=== PATIENT | male | born 1975 | race Caucasian/White ===

== ENCOUNTER 2024-01-20 16:29 | Emergency (ER) | payer OTHER, MEDICARE, SELFPAY ==
[2024-01-20] VITALS (7 sets, daily range): BP systolic 128–156; BP diastolic 80–94; PULSE 52–102; RESP 12–18; TEMP 36.6; O2SAT 92–99; BMI 25.4
--- NOTE | 2024-01-20 16:43 | CTR_ITS ---
PROCEDURE INFORMATION: Exam: CT Abdomen And Pelvis With Contrast Exam date and time: 01/20/2024 5:21 PM Age: 48 years old Clinical indication: Abdominal pain; Prior surgery; Surgery date: 6+ months; Surgery type: Gb; Additional info: Abd pain TECHNIQUE: Imaging protocol: Computed tomography of the abdomen and pelvis with contrast. Radiation optimization: All CT scans at this facility use at least one of these dose optimization techniques: automated exposure control; mA and/or kV adjustment per patient size (includes targeted exams where dose is matched to clinical indication); or iterative reconstruction. Contrast material: OMNI 350; Contrast volume: 100 ml; Contrast route: INTRAVENOUS (IV); COMPARISON: No relevant prior studies available. RADIATION DOSE METRICS: Total DLP (mGy-cm): 616 FINDINGS: Lungs: Lung bases are clear. Diaphragm: There is a small sliding-type hiatal hernia. Liver: The liver is normal. Gallbladder and biliary ducts: The gallbladder is absent. There is ectasia of the common bile duct and central intrahepatic ducts. Pancreas: There are extensive calcifications in the pancreatic parenchyma consistent with chronic pancreatitis. No sign of acute pancreatitis. Spleen: The spleen is mildly enlarged. Adrenal glands: There is hypertrophy of the left adrenal gland. Kidneys and ureters: There are innumerable bilateral simple and complicated renal cysts measuring up to 3 cm on the right and 3.5 cm on the left. Both kidneys are mildly enlarged. No definite enhancing renal lesion is seen, although high density cysts cannot be confidently differentiated from enhancing solid neoplasm. There is no hydronephrosis or ureteral dilation. 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 Subtle asymmetric urothelial enhancement in the right ureters. No stones. No ureteral stones. Left ureter is normal. Stomach and bowel: The stomach is decompressed, preventing meaningful evaluation of wall thickness. The small bowel is nondilated. The cecum and ascending colon are decompressed, limiting assessment of wall thickness. There is relatively greater wall thickness and enhancement just above the cecum than in the remainder of the colon. There is no definite pericolonic edema. The colon is unremarkable more distally. Appendix: The appendix is normal. Intraperitoneal space: There is no free air or significant intraperitoneal free fluid. Vasculature: There is mild aortic atherosclerotic disease. The portal, splenic and superior mesenteric veins are patent. Lymph nodes: There is no lymphadenopathy in the retroperitoneum, mesentery, pelvis or inguinal regions. Urinary bladder: There is mild diffuse bladder wall thickening suggesting muscular hypertrophy. Reproductive: The prostate and seminal vesicles are unremarkable. Bones/joints: intact posterolateral and interbody fusion at L5-S1. There is mild degenerative disease in the lumbar spine. There is a serpiginous focal sclerosis in the right femoral head suggesting avascular necrosis. There is no subchondral collapse. There is moderate degenerative disease of both hips. The bony pelvis is intact. Soft tissues: There is a small fat containing umbilical hernia. There is a small fat containing right inguinal hernia. CT/CT abdomen pelvis w con* [id number] IMPRESSION: 1. Asymmetric ureteral urothelial enhancement involving duplicated right ureters suggesting ascending urinary tract infection. No sign of obstruction. No stones. 2. Nondistended colon with questionable abnormal wall thickening and enhancement in the ascending colon. This finding may be nonpathologic. Colitis and neoplasm are not excluded. Consider colonoscopy. 3. Focal sclerosis in right femoral head suggesting avascular necrosis. No subchondral collapse. 4. Bilateral polycystic kidneys with numerous simple cysts and additional indeterminate lesions bilaterally which are likely hemorrhagic cyst but cannot be confidently differentiated from enhancing solid neoplasms in the absence of additional phases of contrast. Recommend nonemergent CT or MRI without and with IV contrast. 5. Incidental findings above. COMMENTS: Consistent with the [place] [employer]'s Incidental Findings Committee white paper (J Am Christian Radiol 2018): Any incidental renal lesion less than 1 cm or classified as too small to characterize, or any incidental cystic renal lesion characterized as simple-appearing, is likely benign. No follow-up imaging is recommended for these lesions per consensus recommendations based on imaging criteria.
--- NOTE | 2024-01-20 16:50 | W.ED.ABDPA2 ---
HPI - Abdominal Pain General: Chief Complaint: Abdominal Pain Stated Complaint: lower abd pain Time Seen by Provider: 01/20/24 16:33 Source: patient and EMS Mode of arrival: EMS Limitations: no limitations History of Present Illness: 48-year-old male states he has a history of chronic pancreatitis states he started having abdominal pain along with vomiting diarrhea states he feels very dehydrated. He was given Zofran Dilaudid route states he is improving no longer has any pain but states he is having generalized weakness he denies any fevers denies any worsening Associated Symptoms: Reports diarrhea, nausea and vomiting; Denies chills, dysuria and fever(s) Related Data Previous Rx's Medication Instructions Recorded hydrocodone 5 mg-acetaminophen 325 1 tab PO Q6H PRN pain #14 tabs 01/20/24 mg tablet ondansetron 4 mg disintegrating 4 mg PO Q6H PRN nausea and 01/20/24 tablet vomiting #14 tabs Allergies Allergy/AdvReac Type Severity Reaction Status Date / Time No Known Allergies Allergy Verified 01/20/24 16:55 Review of Systems Const: Denies: fever(s), chills, body aches or change in appetite ENMT: Denies: throat pain or dental pain Card: Denies: chest pain Resp: Denies: dyspnea GI: Reports: abdominal pain, nausea, vomiting and diarrhea : Denies: dysuria Musc: Denies: neck pain or back pain Skin/Breast: Denies: rash Neuro: Denies: headache(s) Physical Exam Const: COMMON NORMALS: no acute distress, patient oriented x3 and healthy appearing HENMT: COMMON NORMALS: normocephalic and atraumatic HEAD & SCALP: normocephalic and atraumatic Eye: COMMON NORMALS: conjunctivae normal CONJUNCTIVA: Yes conjunctivae normal Neck/C-Spine: COMMON NORMALS: full ROM and supple Chest: COMMONS NORMALS: normal inspection of the chest and normal palpation of entire chest wall Resp: COMMON NORMALS: normal respiratory effort, No retractions, No use of accessory muscles and clear to auscultation bilaterally AUSCULTATION: clear to auscultation bilaterally Cardio: COMMON NORMALS: regular rate, regular rhythm and No murmurs present (Cardio) RATE: regular rate RHYTHM: regular rhythm GI: COMMON NORMALS: Normal to inspection, nondistended, normoactive bowel sounds present, Soft to palpation, non-tender and no masses PALPATION: Yes Soft to palpation Extremity: COMMON NORMALS: normal to inspection and full ROM Neuro: COMMON NORMALS: patient oriented x3, moves all extremities and no focal motor deficits Psych: COMMON NORMALS: mental status grossly normal, Normal thought process present and cooperative THOUGHT PROCESS: Normal thought process present Skin: COMMON NORMALS: no rashes or lesions noted and no wounds GENERAL SKIN EXAM: no rashes or lesions noted Course Vital Signs: Vital signs: Vital Signs Temperature 97.8 F 01/20/24 16:47 Pulse Rate 58 L 01/20/24 18:30 Respiratory Rate 16 01/20/24 18:30 Blood Pressure 128/82 01/20/24 18:30 Pulse Oximetry 99 01/20/24 18:30 Oxygen Delivery Me thod Room Air 01/20/24 18:30 MDM - Abdominal Pain Medical Decision Making Patient presents here with vomiting along with abdominal pain CT scan showed no real acute findings his blood work is normal urinalysis normal no signs of UTI he feels much improved here we will prescribe pain meds nausea medicine we will get him follow-up with surgery return if worsening he understands agrees to plan Medical Records I reviewed the patient's medical records. Lab Data I reviewed the patient's lab results. 01/20/24 17:42 01/20/24 17:42 Labs/Radiology: Radiology Impressions Abdomen/Pelvis CT 01/20/24 16:43 IMPRESSION: 1. Asymmetric ureteral urothelial enhancement involving duplicated right ureters suggesting ascending urinary tract infection. No sign of obstruction. No stones. 2. Nondistended colon with questionable abnormal wall thickening and enhancement in the ascending colon. This finding may be nonpathologic. Colitis and neoplasm are not excluded. Consider colonoscopy. 3. Focal sclerosis in right femoral head suggesting avascular necrosis. No subchondral collapse. 4. Bilateral polycystic kidneys with numerous simple cysts and additional indeterminate lesions bilaterally which are likely hemorrhagic cyst but cannot be confidently differentiated from enhancing solid neoplasms in the absence of additional phases of contrast. Recommend nonemergent CT or MRI without and with IV contrast. 5. Incidental findings above. COMMENTS: Consistent with the [employer]'s Incidental Findings Committee white paper (J Am Christian Radiol 2018): Any incidental renal lesion less than 1 cm or classified as too small to characterize, or any incidental cystic renal lesion characterized as simple-appearing, is likely benign. No follow-up imaging is recommended for these lesions per consensus recommendations based on imaging criteria. Laboratory Results WBC 9.34 10^3/uL (3.29-11.43) 01/20/24 17:42 RBC 4.35 10^6/uL (3.85-5.65) 01/20/24 17:42 Hgb 14.20 g/dL (11.27-16.99) 01/20/24 17:42 Hct 41.0 % (37-53) 01/20/24 17:42 MCV 94.3 fl (82-101) 01/20/24 17:42 MCH 32.6 pg (27-33) 01/20/24 17:42 MCHC 34.6 g/dL (30-55) 01/20/24 17:42 RDW 12.0 % (12.1-15.1) L 01/20/24 17:42 Plt Count 160 10^3/cmm (157-399) 01/20/24 17:42 MPV 10.2 fL (7.4-10.4) 01/20/24 17:42 Neut % (Auto) 88.8 % 01/20/24 17:42 Lymph % (Auto) 6.1 % 01/20/24 17:42 Boundary % (Auto) 4.4 % 01/20/24 17:42 Eos % (Auto) 0.1 % 01/20/24 17:42 Baso % (Auto) 0.3 % 01/20/24 17:42 Neut # (Auto) 8.29 10^3/uL (1.8-7.7) H 01/20/24 17:42 Lymph # (Auto) 0.6 10^3/uL (0.8-4.8) L 01/20/24 17:42 Boundary # (Auto) 0.4 10^3/uL (0.2-0.9) 01/20/24 17:42 Eos # (Auto) 0.0 10^3/uL (0.0-0.8) 01/20/24 17:42 Baso # (Auto) 0.0 10^3/uL (0.0-0.1) 01/20/24 17:42 Nucleated RBC % (auto) 0 % 01/20/24 17:42 Nucleated RBCs # 0.0 /100WBC 01/20/24 17:42 Sodium 140 mmol/L (136-145) 01/20/24 17:42 Potassium 4.5 mmol/L (3.5-5.1) 01/20/24 17:42 Chloride 102 mmol/L (98-107) 01/20/24 17:42 Carbon Dioxide 24 mmol/L (22-29) 01/20/24 17:42 Anion Gap 18.5 (5-19) 01/20/24 17:42 BUN 26 mg/dL (6-20) H 01/20/24 17:42 Creatinine 1.8 mg/dL (0.7-1.2) H 01/20/24 17:42 GFR Calculation 40.8 mL/min (90-130) L 01/20/24 17:42 Glucose 222 mg/dL (65-115) H 01/20/24 17:42 Calculated Osmolality 302 mOsm/kg (285-295) H 01/20/24 17:42 Calcium 8.9 mg/dL (8.5-10.5) 01/20/24 17:42 Total Bilirubin 0.5 mg/dL (0.15-1.2) 01/20/24 17:42 AST 20 U/L (0-40) 01/20/24 17:42 ALT 24 U/L (0-41) 01/20/24 17:42 Alkaline Phosphatase 71 U/L (40-130) 01/20/24 17:42 Total Protein 6.5 g/dL (6.6-8.7) L 01/20/24 17:42 Albumin 4.2 g/dL (3.5-5.2) 01/20/24 17:42 Globulin 2.3 g/dL (1.3-4.6) 01/20/24 17:42 Lipase 8 U/L (13-60) L 01/20/24 17:42 Urine Color Yellow (Yellow) 01/20/24 17:35 Urine Appearance Clear (CLEAR) 01/20/24 17:35 Urine pH 7.5 (5-7) 01/20/24 17:35 Ur Specific [place] 1.032 (1.005-1.030) H 01/20/24 17:35 Urine Protein Negative (Negative) 01/20/24 17:35 Urine Glucose (UA) 3+ (Normal) H 01/20/24 17:35 Urine Ketones 2+ (Negative) H 01/20/24 17:35 Urine Blood Negative (Negative) 01/20/24 17:35 Urine Nitrate Negative (Negative) 01/20/24 17:35 Urine Bilirubin Negative (Negative) 01/20/24 17:35 Urine Urobilinogen 1.0 mg/dL (Negative) 01/20/24 17:35 Ur Leukocyte Esterase Negative (Negative) 01/20/24 17:35 Amorphous Sediment Not Reportable 01/20/24 17:35 All radiology interpretation(s) finalized by discharge Discharge Plan Discharge Patient Disposition: Home Clinical Impression: Abdominal pain, Vomiting Condition: Stable Prescriptions: New hydrocodone-acetaminophen 5-325 mg tablet 1 tab PO Q6H PRN (Reason: pain) Qty: 14 0RF ondansetron 4 mg tablet,disintegrating 4 mg PO Q6H PRN (Reason: nausea and vomiting) Qty: 14 0RF Discharge Orders: Discharge ED (Routine); Ordered 01/20/24 Ordered By: Jacob Wong Referrals: Du Snyder DO [Physician] - 1-3 days Sharad Li DO [Primary Care Provider] - 4-7 days Discharge Diet: Advance as tolerated Discharge Activity: Resume usual activity Patient Instructions: Acute Nausea and Vomiting (ED), Abdominal Pain (ED), Opioid Safety Coding Level of Care Code ED Material Requirements Worker for Adamaris Cherry
[2024-01-20] MEDS: ondansetron 2 mg/ML SDV 2 mL 4 MG IVP (17:05)
[2024-01-20] MEDS: morphine 4 mg/mL SDV 1 mL IVP (17:07)
[2024-01-20] MEDS: sodium chloride 0.9% 1,000 ML 999 ML IV ×2 (17:11→18:31)
[2024-01-20] MEDS: iohexol 350 mg/mL 500 mL Btl (per mL) IV (17:24)
[2024-01-20 17:54] LABS: Basophils % 0.3 %; Eosinophils % 0.1 %; Lymphocytes # 0.6 10^3/uL (0.8-4.8); Lymphocytes % 6.1 %; Mean Corpuscular HGB Conc 34.6 g/dL (30-55); Mean Corpuscular Hemoglobin 32.6 pg (27-33); Mean Corpuscular Volume 94.3 fl (82-101); Mean Platelet Volume 10.2 fL (7.4-10.4); Monocytes # 0.4 10^3/uL (0.2-0.9); Monocytes % 4.4 %; Neutrophils # 8.29 10^3/uL (1.8-7.7); Neutrophils % 88.8 %; Nucleated Red Blood Cells % 0 %; Platelet Count 160 10^3/cmm (157-399); Red Blood Count 4.35 10^6/uL (3.85-5.65); White Blood Count 9.34 10^3/uL (3.29-11.43)
[2024-01-20 18:00] LABS: Charge for UA Resulting for Rev
[2024-01-20 18:17] LABS: Bilirubin Urine Negative (Negative); Blood Urine Negative (Negative); Glucose Urine UA 3+ (Normal); Ketones Urine 2+ (Negative); Leukocyte Esterase Urine Negative (Negative); Nitrate Urine Negative (Negative); Protein Urine Negative (Negative); Urine Appearance Clear (CLEAR); Urine Color Yellow (Yellow); pH Urine 7.5 (5-7)
[2024-01-20 18:19] LABS: Alanine Aminotransferase 24 U/L (0-41); Albumin Level 4.2 g/dL (3.5-5.2); Alkaline Phosphatase 71 U/L (40-130); Anion Gap 18.5 (5-19); Aspartate Amino Transferase 20 U/L (0-40); Blood Urea Nitrogen 26 mg/dL (6-20); Calcium 8.9 mg/dL (8.5-10.5); Carbon Dioxide 24 mmol/L (22-29); Chloride 102 mmol/L (98-107); Creatinine Clr Calc Pharmacy 60.1696; Globulin 2.3 g/dL (1.3-4.6); Glomerular Filtration Rate 40.8 mL/min (90-130); Glucose 222 mg/dL (65-115); Lipase 8 U/L (13-60); Osmolality Calculated 302 mOsm/kg (285-295); Potassium 4.5 mmol/L (3.5-5.1); Sodium 140 mmol/L (136-145); Total Bilirubin 0.5 mg/dL (0.15-1.2); Total Protein 6.5 g/dL (6.6-8.7)
[2024-01-20 18:23] LABS: Specific Gravity, Urine 1.032 (1.005-1.030)
[2024-01-20] MEDS: metoclopramide 5 mg/mL SDV 2 mL 10 MG IVP (18:26)
[2024-01-20] MEDS: diphenhydrAMINE 50 mg/mL SDV 1mL IVP (18:26)
--- NOTE | 2024-01-20 19:35 | PC.NURSE ---
Pt sent home with 2 tablets of hydrocodone 5-[address] Wong. Marley Telles witnessed.
[2024-01-20] MEDS: HYDROcodone-acetaminophen 5-325 mg Tablet 2 TAB PO (19:40)
--- NOTE | 2024-01-20 23:59 | DCPLANNER ---
Message sent to General surgery for follow up -vomiting and abdominal pain
== END 2024-01-20 19:53 | disposition home or self-care (01) ==
PROVIDERS: Emergency Provider Emergency Medicine; PCP Family Medicine
DX: R11.11 Vomiting without nausea (principal)
CPT/HCPCS: 36415; 74177; 80053; 81003; 81015; 83690; 85025; 96374; 96375; 99285; J1200; J2270; J2405; J2765; J7030

== ENCOUNTER 2024-01-24 18:22 | Emergency (ER) | payer OTHER, MEDICARE, SELFPAY ==
[2024-01-24 18:26] VITALS: BP 140/94; PULSE 77; RESP 18; TEMP 37.4; O2SAT 99
--- NOTE | 2024-01-24 18:35 | USR_ITS ---
PROCEDURE INFORMATION: Exam: US Abdomen, Limited; Right Upper Quadrant Exam date and time: 01/24/2024 7:44 PM Age: 48 years old Clinical indication: Abdominal pain; Other: Ruq; Prior surgery; Surgery date: 6+ months; Surgery type: [facility]; Additional info: Ruq pain TECHNIQUE: Imaging protocol: Real time ultrasound of the abdomen with image documentation. Limited exam focused on the right upper quadrant. COMPARISON: CT abdomen pelvis w con* [id number] 01/24/2024 7:13 PM FINDINGS: Liver: The liver is enlarged measuring up to 17.1 cm in length. Gallbladder: Gallbladder is absent. Biliary ducts: Extrahepatic and intrahepatic biliary ductal dilatation with no distal stone or mass or stricture seen in the common bile duct. Pancreas: The pancreas is poorly visualized. Right kidney: Numerous cystic structures in the right kidney. US/US gall bladder [id number] IMPRESSION: 1. Gallbladder is absent. 2. Extrahepatic and intrahepatic biliary ductal dilatation with no distal stone or mass or stricture seen in the common bile duct. 3. Numerous cystic structures in the right kidney.
--- NOTE | 2024-01-24 18:37 | CTR_ITS ---
PROCEDURE INFORMATION: Exam: CT Abdomen And Pelvis With Contrast Exam date and time: 01/24/2024 7:13 PM Age: 48 years old Clinical indication: Abdominal pain; Additional info: Abd pain TECHNIQUE: Imaging protocol: Computed tomography of the abdomen and pelvis with contrast. Radiation optimization: All CT scans at this facility use at least one of these dose optimization techniques: automated exposure control; mA and/or kV adjustment per patient size (includes targeted exams where dose is matched to clinical indication); or iterative reconstruction. Contrast material: OMNI 350; Contrast volume: 100 ml; Contrast route: INTRAVENOUS (IV); COMPARISON: CT abdomen pelvis w con* [id number] 01/20/2024 5:21 PM RADIATION DOSE METRICS: Total DLP (mGy-cm): 576 FINDINGS: Liver: Normal. No mass. Gallbladder and biliary ducts: The gallbladder is absent. Pancreas: Innumerable punctate and amorphous calcifications throughout the pancreas with irregular dilatation of the pancreatic duct consistent with chronic pancreatitis. Spleen: Normal. No splenomegaly. Adrenal glands: Normal. No mass. Kidneys and ureters: Normal. No hydronephrosis. Stomach and bowel: Unremarkable. No obstruction. No mucosal thickening. Appendix: No evidence of appendicitis. Intraperitoneal space: Unremarkable. No free air. No significant fluid collection. Vasculature: Unremarkable. No abdominal aortic aneurysm. Lymph nodes: Unremarkable. No enlarged lymph nodes. Urinary bladder: Unremarkable as visualized. Reproductive: Unremarkable as visualized. Bones/joints: Posterior fusion at L5-S1 without evidence of hardware failure or loosening. Soft tissues: Unremarkable. CT/CT abdomen pelvis w con* [id number] IMPRESSION: 1. Innumerable punctate and amorphous calcifications throughout the pancreas with irregular dilatation of the pancreatic duct consistent with chronic pancreatitis. 2. Innumerable simple and complex cystic structures throughout both kidneys which are incompletely assessed on this examination but similar to the prior abdominal CT. No hydronephrosis or renal calculus. 3. No bowel obstruction or inflammatory process associated with the bowel. 4. No free air or significant free fluid in the abdomen or pelvis. 5. No evidence of appendicitis.
--- NOTE | 2024-01-24 18:37 | ECG_ITS ---
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 Measurements Intervals [place] Rate: 77 P: 71 WI: 187 QRS: 69 QRSD: 90 T: 62 QT: 338 QTc: 384 Interpretive Statements SINUS RHYTHM ST DEVIATION AND MODERATE T-WAVE ABNORMALITY, CONSIDER LATERAL ISCHEMIA [-0.1+ mV T-WAVE IN I/aVL/V5/V6] No previous ECG available for comparison Electronically Signed On 01-25-2024 7:49:29 CDT by Kj Martin M.D. [id number]
--- NOTE | 2024-01-24 18:37 | ED_ITS ---
HPI - Abdominal Pain 2 General: Chief Complaint: Abdominal Pain Stated Complaint: urq pain Time Seen by Provider: 01/24/24 18:36 Source: patient and EMS Mode of arrival: EMS Limitations: no limitations History of Present Illness: 48-year-old male states been having diff use abdominal pain since he was seen here and had negative workup he states pain is worsened is mainly in the right upper quadrant having some nausea denies any fevers denies any worsening improving factors. Rates his pain a 7 out of 10 currently Associated Symptoms: Reports nausea; Denies chills, diarrhea, dysuria, fever(s) and vomiting Related Data Previous Rx's Medication Instructions Recorded hydrocodone 5 mg-acetaminophen 325 1 tab PO Q6H PRN pain #14 tabs 01/20/24 mg tablet ondansetron 4 mg disintegrating 4 mg PO Q6H PRN nausea and 01/20/24 tablet vomiting #14 tabs metoclopramide HCl 10 mg tablet 10 mg PO Q6H PRN nausea and 01/24/24 (Reglan) vomiting #20 tabs Allergies Allergy/AdvReac Type Severity Reaction Status Date / Time No Known Allergies Allergy Verified 01/20/24 16:55 Review of Systems 2 Const: Denies: fever(s), chills, body aches or change in appetite ENMT: Denies: throat pain or dental pain Card: Denies: chest pain Resp: Denies: dyspnea GI: Reports: abdominal pain and nausea; Denies: vomiting or diarrhea : Denies: dysuria Musc: Denies: neck pain or back pain Skin/Breast: Denies: rash Neuro: Denies: headache(s) Physical Exam 2 Const: COMMON NORMALS: no acute distress, patient oriented x3 and healthy appearing HENMT: COMMON NORMALS: normocephalic and atraumatic HEAD & SCALP: n ormocephalic and atraumatic Neck/C-Spine: COMMON NORMALS: full ROM and supple Chest: COMMONS NORMALS: normal inspection of the chest Resp: COMMON NORMALS: normal respiratory effort, No retractions, No use of accessory muscles and clear to auscultation bilaterally AUSCULTATION: clear to auscultation bilaterally Cardio: COMMON NORMALS: regular rate, regular rhythm and No murmurs present (Cardio) RATE: regular rate RHYTHM: regular rhythm GI: COMMON NORMALS: Normal to inspection, nondistended, normoactive bowel sounds present, Soft to palpation and no masses PALPATION: Yes Soft to palpation and Yes Tenderness to palpation present (GI) Details: RUQ Extremity: COMMON NORMALS: normal to inspection and full ROM Neuro: COMMON NORMALS: patient oriented x3, moves all extremities and no focal motor deficits Psych: COMMON NORMALS: mental status grossly normal, Normal thought process present and cooperative THOUGHT PROCESS: Normal thought process present Skin: COMMON NORMALS: no rashes or lesions noted and no wounds GENERAL SKIN EXAM: no rashes or lesions noted Course 2 Vital Signs: Vital signs: Vital Signs Temperature 99.4 F 01/24/24 18:26 Pulse Rate 73 01/24/24 21:19 Respiratory Rate 16 01/24/24 21:19 Blood Pressure 124/88 01/24/24 21:19 Pulse Oximetry 95 01/24/24 21:19 Oxygen Delivery Me thod Room Air 01/24/24 20:30 MDM - Abdominal Pain Medical Decision Making Patient presents with abdominal pain his pain has improved here his blood work CT scan showed no acute findings we will place him on Reglan we will get him follow-up with surgery he is return if worsening he understands agrees to plan. Medical Records I reviewed the patient's medical records. Lab Data I reviewed the patient's lab results. 01/24/24 18:36 01/24/24 18:36 Labs/Radiology: Radiology Impressions Gallbladder Ultrasound 01/24/24 18:35 IMPRESSION: 1. Gallbladder is absent. 2. Extrahepatic and intrahepatic biliary ductal dilatation with no distal stone or mass or stricture seen in the common bile duct. 3. Numerous cystic structures in the right kidney. Abdomen/Pelvis CT 01/24/24 18:37 IMPRESSION: 1. Innumerable punctate and amorphous calcifications throughout the pancreas with irregular dilatation of the pancreatic duct consistent with chronic pancreatitis. 2. Innumerable simple and complex cystic structures throughout both kidneys which are incompletely assessed on this examination but similar to the prior abdominal CT. No hydronephrosis or renal calculus. 3. No bowel obstruction or inflammatory process associated with the bowel. 4. No free air or significant free fluid in the abdomen or pelvis. 5. No evidence of appendicitis. Laboratory Results WBC 5.81 10^3/uL (3.29-11.43) 01/24/24 18:36 RBC 4.42 10^6/uL (3.85-5.65) 01/24/24 18:36 Hgb 14.10 g/dL (11.27-16.99) 01/24/24 18:36 Hct 40.2 % (37-53) 01/24/24 18:36 MCV 91.0 fl (82-101) 01/24/24 18:36 MCH 31.9 pg (27-33) 01/24/24 18:36 MCHC 35.1 g/dL (30-55) 01/24/24 18:36 RDW 11.8 % (12.1-15.1) L 01/24/24 18:36 Plt Count 177 10^3/cmm (157-399) 01/24/24 18:36 MPV 9.7 fL (7.4-10.4) 01/24/24 18:36 Neut % (Auto) 60.5 % 01/24/24 18:36 Lymph % (Auto) 29.4 % 01/24/24 18:36 Desha % (Auto) 6.7 % 01/24/24 18:36 Eos % (Auto) 2.2 % 01/24/24 18:36 Baso % (Auto) 0.9 % 01/24/24 18:36 Neut # (Auto) 3.51 10^3/uL (1.8-7.7) 01/24/24 18:36 Lymph # (Auto) 1.7 10^3/uL (0.8-4.8) 01/24/24 18:36 Desha # (Auto) 0.4 10^3/uL (0.2-0.9) 01/24/24 18:36 Eos # (Auto) 0.1 10^3/uL (0.0-0.8) 01/24/24 18:36 Baso # (Auto) 0.1 10^3/uL (0.0-0.1) 01/24/24 18:36 Nucleated RBC % (auto) 0 % 01/24/24 18:36 Nucleated RBCs # 0.0 /100WBC 01/24/24 18:36 Sodium 144 mmol/L (136-145) 01/24/24 18:36 Potassium 4.2 mmol/L (3.5-5.1) 09/09/24 18:36 Chloride 106 mmol/L (98-107) 01/24/24 18:36 Carbon Dioxide 21 mmol/L (22-29) L 01/24/24 18:36 Anion Gap 21.2 (5-19) H 01/24/24 18:36 BUN 19 mg/dL (6-20) 01/24/24 18:36 Creatinine 1.8 mg/dL (0.7-1.2) H 01/24/24 18:36 GFR Calculation 40.8 mL/min (90-130) L 01/24/24 18:36 Glucose 118 mg/dL (65-115) H 01/24/24 18:36 Calculated Osmolality 301 mOsm/kg (285-295) H 01/24/24 18:36 Calcium 9.3 mg/dL (8.5-10.5) 01/24/24 18:36 Total Bilirubin 0.3 mg/dL (0.15-1.2) 01/24/24 18:36 AST 34 U/L (0-40) 01/24/24 18:36 ALT 30 U/L (0-41) 01/24/24 18:36 Alkaline Phosphatase 69 U/L (40-130) 01/24/24 18:36 Total Protein 6.5 g/dL (6.6-8.7) L 01/24/24 18:36 Albumin 4.3 g/dL (3.5-5.2) 01/24/24 18:36 Globulin 2.2 g/dL (1.3-4.6) 01/24/24 18:36 Lipase 8 U/L (13-60) L 01/24/24 18:36 Urine Color Yellow (Yellow) 01/24/24 19:24 Urine Appearance Clear (CLEAR) 01/24/24 19:24 Urine pH 6.5 (5-7) 01/24/24 19:24 Ur Specific [place] 1.030 (1.005-1.030) 01/24/24 19:24 Urine Protein Negative (Negative) 01/24/24 19:24 Urine Glucose (UA) 3+ (Normal) H 01/24/24 19:24 Urine Ketones Trace (Negative) 01/24/24 19:24 Urine Blood Negative (Negative) 01/24/24 19:24 Urine Nitrate Negative (Negative) 01/24/24 19:24 Urine Bilirubin Negative (Negative) 01/24/24 19:24 Urine Urobilinogen 1.0 mg/dL (Negative) 01/24/24 19:24 Ur Leukocyte Esterase Negative (Negative) 01/24/24 19:24 Urine RBC 0-2 /hpf (0-2) 01/24/24 19:24 Urine WBC 0-5 /hpf (0-5) 01/24/24 19:24 Ur Squamous Epith Cells 0-5 /hpf (0-5) 01/24/24 19:24 Amorphous Sediment Not Reportable 01/24/24 19:24 Urine Bacteria None seen /hpf (NONE) 01/24/24 19:24 Hyaline Casts 0-4 /lpf H 01/24/24 19:24 All radiology interpretation(s) finalized by discharge Discharge Plan Discharge Patient Disposition: Home Clinical Impression: Abdominal pain Condition: Stable Prescriptions: New Reglan 10 mg tablet 10 mg PO Q6H PRN (Reason: nausea and vomiting) Qty: 20 0RF No Action hydrocodone-acetaminophen 5-325 mg tablet 1 tab PO Q6H PRN (Reason: pain) Qty: 14 0RF ondansetron 4 mg tablet,disintegrating 4 mg PO Q6H PRN (Reason: nausea and vomiting) Qty: 14 0RF Discharge Orders: Discharge ED (Routine); Ordered 01/24/24 Ordered By: Jacob Wong Referrals: Elver Renteria MD [Physician] - 1-3 days Sharad Li DO [Primary Care Provider] - Discharge Diet: Advance as tolerated Discharge Activity: Resume usual activity Patient Instructions: Abdominal Pain (ED) Coding Level of Care Code ED Social Work Supervisor for Adamaris Cherry
[2024-01-24 18:47] LABS: Basophils # 0.1 10^3/uL (0.0-0.1); Basophils % 0.9 %; Eosinophils # 0.1 10^3/uL (0.0-0.8); Eosinophils % 2.2 %; Hematocrit 40.2 % (37-53); Lymphocytes # 1.7 10^3/uL (0.8-4.8); Lymphocytes % 29.4 %; Mean Corpuscular HGB Conc 35.1 g/dL (30-55); Mean Corpuscular Hemoglobin 31.9 pg (27-33); Mean Platelet Volume 9.7 fL (7.4-10.4); Monocytes # 0.4 10^3/uL (0.2-0.9); Monocytes % 6.7 %; Neutrophils # 3.51 10^3/uL (1.8-7.7); Neutrophils % 60.5 %; Nucleated Red Blood Cells % 0 %; Platelet Count 177 10^3/cmm (157-399); Red Blood Count 4.42 10^6/uL (3.85-5.65); Red Cell Distribution Width 11.8 % (12.1-15.1); White Blood Count 5.81 10^3/uL (3.29-11.43)
[2024-01-24] MEDS: sodium chloride 0.9% 1,000 ML 999 ML IV (18:58)
[2024-01-24] MEDS: metoclopramide 5 mg/mL SDV 2 mL 10 MG IVP (18:59)
[2024-01-24 19:00] VITALS: BP 150/94; PULSE 70; O2SAT 96
[2024-01-24 19:00] LABS: Alanine Aminotransferase 30 U/L (0-41); Albumin Level 4.3 g/dL (3.5-5.2); Alkaline Phosphatase 69 U/L (40-130); Anion Gap 21.2 (5-19); Aspartate Amino Transferase 34 U/L (0-40); Blood Urea Nitrogen 19 mg/dL (6-20); Calcium 9.3 mg/dL (8.5-10.5); Carbon Dioxide 21 mmol/L (22-29); Chloride 106 mmol/L (98-107); Globulin 2.2 g/dL (1.3-4.6); Glomerular Filtration Rate 40.8 mL/min (90-130); Glucose 118 mg/dL (65-115); Lipase 8 U/L (13-60); Osmolality Calculated 301 mOsm/kg (285-295); Potassium 4.2 mmol/L (3.5-5.1); Sodium 144 mmol/L (136-145); Total Bilirubin 0.3 mg/dL (0.15-1.2); Total Protein 6.5 g/dL (6.6-8.7)
[2024-01-24] MEDS: diphenhydrAMINE 50 mg/mL SDV 1mL IVP (19:01)
[2024-01-24] MEDS: iohexol 350 mg/mL 500 mL Btl (per mL) IV (19:16)
[2024-01-24 19:30] VITALS: BP 124/67; PULSE 68; O2SAT 87
[2024-01-24 20:00] VITALS: BP 131/81; PULSE 70; O2SAT 93
[2024-01-24 20:18] LABS: Charge for UA Resulting for Rev
[2024-01-24 20:20] LABS: Bilirubin Urine Negative (Negative); Blood Urine Negative (Negative); Glucose Urine UA 3+ (Normal); Ketones Urine Trace (Negative); Leukocyte Esterase Urine Negative (Negative); Nitrate Urine Negative (Negative); Protein Urine Negative (Negative); Urine Appearance Clear (CLEAR); Urine Color Yellow (Yellow); pH Urine 6.5 (5-7)
[2024-01-24 20:23] LABS: Bacteria Urine None Seen /hpf; Hyaline Casts Urine 0-4 /lpf; RBC Urine 0-2 /hpf (0-2); Squamous Epithelial Cell Urine 0-5 /hpf (0-5); WBC Urine 0-5 /hpf (0-5)
[2024-01-24 20:30] VITALS: BP 153/100; PULSE 66; RESP 16; O2SAT 95
[2024-01-24] MEDS: haloperidol inj 5 mg/mL INJ 1 mL IVP (20:48)
[2024-01-24 21:19] VITALS: BP 124/88; PULSE 73; RESP 16; O2SAT 95
--- NOTE | 2024-01-25 08:42 | DCPLANNER ---
Message sent to General Surgery for follow up on Abd Pain.
== END 2024-01-24 21:19 | disposition home or self-care (01) ==
PROVIDERS: Emergency Medicine; Emergency Provider Emergency Medicine; PCP Family Medicine
DX: R10.11 Right upper quadrant pain (principal)
CPT/HCPCS: 74177; 76705; 80053; 81003; 81015; 83690; 85025; 93005; 96361; 96374; 96375; 99285; J1200; J1630; J2765; J7030

== ENCOUNTER 2024-05-07 19:01 | Emergency (ER) | payer OTHER, MEDICARE, SELFPAY ==
[2024-05-07 19:02] VITALS: BP 133/77; PULSE 118; RESP 18; TEMP 37.6; O2SAT 94; BMI 26.4
[2024-05-07 19:36] VITALS: RESP 22
[2024-05-07] MEDS: morphine 4 mg/mL SDV 1 mL IVP ×3 (19:36→23:18)
[2024-05-07] MEDS: sodium chloride 0.9% 1,000 ML 999 ML IV (19:37)
[2024-05-07] MEDS: haloperidol inj 5 mg/mL INJ 1 mL IVP (19:37)
--- NOTE | 2024-05-07 19:38 | W.ED.ABDPA2 ---
HPI - Abdominal Pain General: Chief Complaint: Abdominal Pain Stated Complaint: ABD PAIN Time Seen by Provider: 05/07/24 19:03 History of Present Illness: 48-year-old male evidently history of chronic pancreatitis. He presents with abdominal pain. Pain is widespread. He says he has vomited several times today. No known fever. No diarrhea. No blood in the stool. He also says he has a history of polycystic kidney disease. He has a history of cholecystectomy as well. Related Data Previous Rx's Medication Instructions Recorded ciprofloxacin HCl 500 mg tablet 500 mg PO BID #20 tabs 05/07/24 hydrocodone 5 mg-acetaminophen 325 1 tab PO Q6H PRN pain #14 tabs 05/07/24 mg tablet ondansetron 4 mg disintegrating 4 mg PO Q6H PRN nausea and 05/07/24 tablet vomiting #14 tabs tamsulosin 0.4 mg capsule (Flomax) 0.4 mg PO DAILY #30 caps 05/07/24 Allergies Allergy/AdvReac Type Severity Reaction Status Date / Time No Known Allergies Allergy Verified 05/07/24 19:08 Physical Exam Const: GENERAL APPEARANCE: cooperative and anxious; not frail appearing HENMT: COMMON NORMALS: normocephalic, atraumatic and Normal external nose present HEAD & SCALP: normocephalic and atraumatic FACE & SINUS: normal facial exam and face symmetric NOSE: Normal external nose present Eye: COMMON NORMALS: Equal, round and reactive pupils present and EOMs intact bilaterally PUPIL: Yes Equal, round and reactive pupils present Neck/C-Spine: GENERAL: Yes trachea midline Chest: CHEST: Yes Symmetrical chest wall rise Resp: COMMON NORMALS: normal respiratory effort, No retractions, No use of accessory muscles and clear to auscultation bilaterally AUSCULTATION: clear to auscultation bilaterally Cardio: COMMON NORMALS: regular rhythm RATE: tachycardic RHYTHM: regular rhythm GI: COMMON NORMALS: Normal to inspection, nondistended, normoactive bowel sounds present and Soft to palpation PALPATION: Yes Soft to palpation, Yes Tenderness to palpation present (GI) (Diffuse) and Yes Guarding due to palpation present (GI) Extremity: COMMON NORMALS: no pedal edema Neuro: ARVIN COMA SCALE: document GCS findings Arvin coma scale eye opening: Spontaneous [place] coma scale verbal response: Orientated [place] coma scale motor response: Obey commands Arvin coma scale total score: 15 SENSORY EXAM: Yes extremities (intact) Psych: COMMON NORMALS: speech normal SPEECH: Yes normal speech Skin: COMMON NORMALS: no rashes or lesions noted GENERAL SKIN EXAM: no rashes or lesions noted Course Vital Signs: Vital signs: Vital Signs Temperature 99.7 F H 05/07/24 19:02 Pulse Rate 99 05/07/24 23:25 Respiratory Rate 20 H 05/07/24 23:25 Blood Pressure 142/78 05/07/24 23:25 Pulse Oximetry 95 05/07/24 23:25 Oxygen Delivery Me thod Room Air 05/07/24 20:37 MDM - Abdominal Pain Medical Decision Making Temperature 97.7 on arrival. He is tachycardic. Quite anxious. He had a negative CT back in January for similar symptoms at this facility. White blood cell count is 16. Creatinine is up to 2.2. Sodium is 131. Bicarbonate is 18. Is received a liter of fluid. Urinalysis shows greater than 100 whites with 1+ leukocyte Estrace and a positive nitrate. Urine drug screen is positive for marijuana. His lipase is 7. His CRP is 80. CT scan shows hydroureter that is similar to prior. Chronic changes otherwise. No mechanical obstruction to the ureter. The patient does have polycystic kidney disease, and urinary tract abnormalities that are chronic. He does have evidence of cystitis. To be treated with antibiotics. Pain medication and antiemetic. Flomax, as this may help relieve functional obstruction. He is to return for worsening symptoms despite treatment. He has a follow-up appointment with his PCP next week. [facility] He may need urology referral, which he will request at that time. Lab Data 05/07/24 19:32 05/07/24 19:32 Labs/Radiology: Radiology Impressions Abdomen/Pelvis CT 05/07/24 20:08 IMPRESSION: 1. Similar mild hydroureter without a definitive obstructing cause and uroepithelial enhancement. Correlate with urinalysis to exclude cystitis. 2. Chronic changes of the bilateral kidneys as above and the pancreas. 3. Additional incidental/chronic findings as above. COMMENTS: Consistent with the [employer]'s Incidental Findings Committee white paper (J Am Christian Radiol 2018): Any incidental renal lesion less than 1 cm or classified as too small to characterize, or any incidental cystic renal lesion characterized as simple-appearing, is likely benign. No follow-up imaging is recommended for these lesions per consensus recommendations based on imaging criteria. Laboratory Results WBC 15.95 10^3/uL (3.29-11.43) H 05/07/24 19: RBC 4.97 10^6/uL (3.85-5.65) 05/07/24 19:32 Hgb 15.20 g/dL (11.27-16.99) 05/07/24 19:32 Hct 44.2 % (37-53) 05/07/24 19:32 MCV 88.9 fl (82-101) 05/07/24 19:32 MCH 30.6 pg (27-33) 05/07/24 19: MCHC 34.4 g/dL (30-55) 05/07/24 19: RDW 12.1 % (12.1-15.1) 05/07/24 19:32 Plt Count 177 10^3/cmm (157-399) 05/07/24 19: MPV 10.4 fL (7.4-10.4) 05/07/24 19:32 Neut % (Auto) 78.5 % 05/07/24 19: Lymph % (Auto) 9.3 % 05/07/24 19:32 [place]ahan % (Auto) 11.5 % 05/07/24 19:32 Eos % (Auto) 0.0 % 05/07/24 19: Baso % (Auto) 0.4 % 05/07/24 19:32 Neut # (Auto) 12.53 10^3/uL (1.8-7.7) H 05/07/24 19:32 Lymph # (Auto) 1.5 10^3/uL (0.8-4.8) 05/07/24 19:32 [place]ahan # (Auto) 1.8 10^3/uL (0.2-0.9) H 05/07/24 19:32 Eos # (Auto) 0.0 10^3/uL (0.0-0.8) 05/07/24 19:32 Baso # (Auto) 0.1 10^3/uL (0.0-0.1) 05/07/24 19:32 Nucleated RBC % (auto) 0 % 05/07/24 19:32 Nucleated RBCs # 0.0 /100WBC 05/07/24 19:32 PT 14.10 SECONDS (12.1-14.9) 05/07/24 19:32 INR 1.06 (0.8-1.2) 05/07/24 19:32 Sodium 131 mmol/L (136-145) L 05/07/24 19:32 Potassium 4.4 mmol/L (3.5-5.1) 05/07/24 19:32 Chloride 98 mmol/L (98-107) 05/07/24 19:32 Carbon Dioxide 18 mmol/L (22-29) L 05/07/24 19:32 Anion Gap 19.4 (5-19) H 05/07/24 19:32 BUN 26 mg/dL (6-20) H 05/07/24 19:32 Creatinine 2.2 mg/dL (0.7-1.2) H 05/07/24 19:32 GFR Calculation 32.4 mL/min (90-130) L 05/07/24 19:32 Glucose 166 mg/dL (65-115) H 05/07/24 19:32 Calculated Osmolality 281 mOsm/kg (285-295) L 05/07/24 19:32 Calcium 9.4 mg/dL (8.5-10.5) 05/07/24 19:32 Total Bilirubin 1.0 mg/dL (0.15-1.2) 05/07/24 19:32 AST 13 U/L (0-40) 05/07/24 19:32 ALT 13 U/L (0-41) 05/07/24 19:32 Alkaline Phosphatase 92 U/L (40-130) 05/07/24 19:32 C-Reactive Protein 80.3 mg/L (0.0-4.9) H 05/07/24 19:32 Total Protein 7.4 g/dL (6.6-8.7) 05/07/24 19:32 Albumin 4.4 g/dL (3.5-5.2) 05/07/24 19:32 Globulin 3.0 g/dL (1.3-4.6) 05/07/24 19:32 Lipase 7 U/L (13-60) L 05/07/24 19:32 Urine Color Yellow (Yellow) 05/07/24 20:00 Urine Appearance Cloudy (CLEAR) A 05/07/24 20:00 Urine pH 5.5 (5-7) 05/07/24 20:00 Ur Specific [place] 1.023 (1.005-1.030) 05/07/24 20:00 Urine Protein 1+ (Negative) A 05/07/24 20:00 Urine Glucose (UA) 3+ (Normal) H 05/07/24 20:00 Urine Ketones 1+ (Negative) H 05/07/24 20:00 Urine Blood 1+ (Negative) A 05/07/24 20:00 Urine Nitrate Positive (Negative) A 05/07/24 20:00 Urine Bilirubin Negative (Negative) 05/07/24 20:00 Urine Urobilinogen 1.0 mg/dL (Negative) 05/07/24 20:00 Ur Leukocyte Esterase 1+ (Negative) A 05/07/24 20:00 Urine RBC 0-2 /hpf (0-2) 05/07/24 20:00 Urine WBC >100 /hpf (0-5) H 05/07/24 20:00 Ur Squamous Epith Cells 0-5 /hpf (0-5) 05/07/24 20:00 Amorphous Sediment Not Reportable 05/07/24 20:00 Urine Bacteria Trace /hpf (NONE) 05/07/24 20:00 Hyaline Casts 0.81 /lpf 05/07/24 20:00 Urine Opiates Screen Positive ng/mL (Negative) H 05/07/24 20:00 Ur Barbiturates Screen Negative ng/mL (Negative) 05/07/24 20:00 Ur Phencyclidine Scrn Negative ng/mL (Negative) 05/07/24 20:00 Ur Amphetamines Screen Negative ng/mL (Negative) 05/07/24 20:00 U Benzodiazepines Scrn Negative ng/mL (Negative) 05/07/24 20:00 Urine Cocaine Screen Negative ng/mL (Negative) 05/07/24 20:00 U Marijuana (THC) Screen Positive ng/mL (Negative) H 05/07/24 20:00 All radiology interpretation(s) finalized by discharge Discharge Plan Discharge Patient Disposition: Home Clinical Impression: Abdominal pain, Urinary tract infection in male Condition: Stable Prescriptions: New tamsulosin [Flomax] 0.4 mg capsule 0.4 mg PO DAILY Qty: 30 0RF ciprofloxacin HCl 500 mg tablet 500 mg PO BID Qty: 20 0RF Continued hydrocodone-acetaminophen 5-325 mg tablet 1 tab PO Q6H PRN (Reason: pain) Qty: 14 0RF ondansetron 4 mg tablet,disintegrating 4 mg PO Q6H PRN (Reason: nausea and vomiting) Qty: 14 0RF Discontinued metoclopramide HCl [Reglan] 10 mg tablet 10 mg PO Q6H PRN (Reason: nausea and vomiting) Qty: 20 0RF Discharge Orders: Discharge ED (Routine); Ordered 05/07/24 Ordered By: Krishna North Referrals: Sharad Li DO [Primary Care Provider] - 4-7 days Patient Instructions: Abdominal Pain (ED), Opioid Safety, Pain Management Activity Restrictions/Additional Instructions: Return for vomiting liquids or medications despite treatment, blood in the stool or vomitus, any other concerning symptoms. Coding Level of Care Code ED Gill Tender for Adamaris Cherry
[2024-05-07 19:44] LABS: Basophils # 0.1 10^3/uL (0.0-0.1); Basophils % 0.4 %; Hematocrit 44.2 % (37-53); Lymphocytes # 1.5 10^3/uL (0.8-4.8); Lymphocytes % 9.3 %; Mean Corpuscular HGB Conc 34.4 g/dL (30-55); Mean Corpuscular Hemoglobin 30.6 pg (27-33); Mean Corpuscular Volume 88.9 fl (82-101); Mean Platelet Volume 10.4 fL (7.4-10.4); Monocytes # 1.8 10^3/uL (0.2-0.9); Monocytes % 11.5 %; Neutrophils # 12.53 10^3/uL (1.8-7.7); Neutrophils % 78.5 %; Nucleated Red Blood Cells % 0 %; Platelet Count 177 10^3/cmm (157-399); Red Blood Count 4.97 10^6/uL (3.85-5.65); Red Cell Distribution Width 12.1 % (12.1-15.1); White Blood Count 15.95 10^3/uL (3.29-11.43)
[2024-05-07 19:55] LABS: INR 1.06 (0.8-1.2)
[2024-05-07 20:00] LABS: Alanine Aminotransferase 13 U/L (0-41); Albumin Level 4.4 g/dL (3.5-5.2); Alkaline Phosphatase 92 U/L (40-130); Anion Gap 19.4 (5-19); Aspartate Amino Transferase 13 U/L (0-40); Blood Urea Nitrogen 26 mg/dL (6-20); C Reactive Protein 80.3 mg/L (0.0-4.9); Calcium 9.4 mg/dL (8.5-10.5); Carbon Dioxide 18 mmol/L (22-29); Chloride 98 mmol/L (98-107); Creatinine Clr Calc Pharmacy 49.9833; Glomerular Filtration Rate 32.4 mL/min (90-130); Glucose 166 mg/dL (65-115); Lipase 7 U/L (13-60); Osmolality Calculated 281 mOsm/kg (285-295); Potassium 4.4 mmol/L (3.5-5.1); Sodium 131 mmol/L (136-145); Total Protein 7.4 g/dL (6.6-8.7)
--- NOTE | 2024-05-07 20:08 | CTR_ITS ---
PROCEDURE INFORMATION: Exam: CT Abdomen And Pelvis With Contrast Exam date and time: 05/07/2024 8:15 PM Age: 48 years old Clinical indication: Pain and abnormal findings; Abnormal lab test; Elevated wbc; Nausea and vomiting; Abdominal pain; Generalized; Prior surgery; Surgery date: 6+ months; Surgery type: Gb. Lumbar fusion; Patient HX: Diffuse abd pain with n/v. Wbc of 16k. History of polycystic kidney disease and chronic pancreatitis. ; Additional info: Abd pain, leukocytosis TECHNIQUE: Imaging protocol: Computed tomography of the abdomen and pelvis with contrast. Radiation optimization: All CT scans at this facility use at least one of these dose optimization techniques: automated exposure control; mA and/or kV adjustment per patient size (includes targeted exams where dose is matched to clinical indication); or iterative reconstruction. Contrast material: OMNI 350; Contrast volume: 80 ml; Contrast route: INTRAVENOUS (IV); COMPARISON: CT abdomen pelvis w con* [id number] 01/24/2024 7:13 PM RADIATION DOSE METRICS: Total DLP (mGy-cm): 546.93 FINDINGS: Liver: Normal. No mass. Gallbladder and biliary ducts: The gallbladder is surgically absent. Pancreas: Diffuse calcifications of the pancreas. Diffuse pancreatic ductal dilatation and additional hypoattenuating lesions which may relate to side branch IPMNs. Spleen: Normal. No splenomegaly. Adrenal glands: Normal. No mass. Kidneys and ureters: Redemonstration of innumerable cystic deformities of the bilateral kidneys. Some of the cysts demonstrate internal high attenuation and may be complicated with internal debris. Duplicated right renal ureteral system. Similar mild right hydroureter with some uroepithelial enhancement. Stomach and bowel: No bowel obstruction. Appendix: Normal appendix. Intraperitoneal space: Unremarkable. No free air. No significant fluid collection. Vasculature: Unremarkable. No abdominal aortic aneurysm. Lymph nodes: Unremarkable. No enlarged lymph nodes. Urinary bladder: Similar circumferential urinary bladder wall thickening. Reproductive: Unremarkable as visualized. Bones/joints: L5-S1 posterior fusion hardware. 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 Soft tissues: Unremarkable. CT/CT abdomen pelvis w con* [id number] IMPRESSION: 1. Similar mild hydroureter without a definitive obstructing cause and uroepithelial enhancement. Correlate with urinalysis to exclude cystitis. 2. Chronic changes of the bilateral kidneys as above and the pancreas. 3. Additional incidental/chronic findings as above. COMMENTS: Consistent with the [employer]'s Incidental Findings Committee white paper (J Am Christian Radiol 2018): Any incidental renal lesion less than 1 cm or classified as too small to characterize, or any incidental cystic renal lesion characterized as simple-appearing, is likely benign. No follow-up imaging is recommended for these lesions per consensus recommendations based on imaging criteria.
[2024-05-07] MEDS: iohexol 350 mg/mL 500 mL Btl (per mL) IV (20:16)
[2024-05-07 20:18] LABS: Bilirubin Urine Negative (Negative); Blood Urine 1+ (Negative); Glucose Urine UA 3+ (Normal); Ketones Urine 1+ (Negative); Leukocyte Esterase Urine 1+ (Negative); Nitrate Urine Positive (Negative); Protein Urine 1+ (Negative); Specific Gravity, Urine 1.023 (1.005-1.030); Urine Appearance Cloudy (CLEAR); Urine Color Yellow (Yellow); pH Urine 5.5 (5-7)
[2024-05-07 20:23] LABS: Add Urine Microscopic? YES; Bacteria Urine Trace /hpf; Hyaline Casts Urine 0.81 /lpf; RBC Urine 0-2 /hpf (0-2); Squamous Epithelial Cell Urine 0-5 /hpf (0-5); WBC Urine >100 /hpf (0-5)
[2024-05-07 20:25] LABS: Amphetamines Screen Urine Negative (Negative); Barbiturates Screen Urine Negative (Negative); Benzodiazepines Screen Urine Negative (Negative); Cocaine Screen Urine Negative (Negative); Opiate Screen Urine Positive (Negative); PCP Screen Urine Negative (Negative); THC Screen Urine Positive (Negative)
[2024-05-07 20:34] LABS: Add Urine Culture? Yes
[2024-05-07 20:37] VITALS: BP 135/90; PULSE 107; RESP 17; O2SAT 94
[2024-05-07 21:19] VITALS: RESP 24
[2024-05-07] MEDS: ketorolac 30 mg/mL INJ IVP (21:19)
[2024-05-07] MEDS: ondansetron 2 mg/ML SDV 2 mL 4 MG IVP ×2 (21:20→23:17)
[2024-05-07] MEDS: ciprofloxacin 500 mg Tablet PO (23:17)
[2024-05-07 23:18] VITALS: RESP 20
[2024-05-07 23:25] VITALS: BP 142/78; PULSE 99; RESP 20; O2SAT 95
== END 2024-05-07 23:26 | disposition home or self-care (01) ==
PROVIDERS: Emergency Provider Emergency Medicine; PCP Family Medicine
DX: N39.0 Urinary tract infection, site not specified (principal)
CPT/HCPCS: 74177; 80053; 80306; 81001; 83690; 85025; 85610; 86140; 87086; 96361; 96374; 96375; 96376; 99285; J1630; J1885; J2270; J2405; J7030

== ENCOUNTER 2024-09-01 12:19 | Outpatient (CLI) | payer OTHER, SELFPAY ==
[2024-09-01 14:12] LABS: Parathyroid Hormone 83.1 pg/mL (15-65)
[2024-09-01 14:13] LABS: Creatinine Urine, Random 108 mg/dL (39-259); Microalbum Creatinine Ratio Ur 9 mg/dL (0-20); Microalbumin Random Urine 1 ug/dL (0-20)
[2024-09-01 14:14] LABS: Albumin Level 4.6 g/dL (3.5-5.2); Anion Gap 19.8 (5-19); Blood Urea Nitrogen 25 mg/dL (6-20); Calcium 9.4 mg/dL (8.5-10.5); Calcium 9.5 mg/dL (8.5-10.5); Carbon Dioxide 20 mmol/L (22-29); Chloride 99 mmol/L (98-107); Glomerular Filtration Rate 30.8 mL/min (90-130); Glucose 178 mg/dL (65-115); Phosphorus 3.5 mg/dL (2.5-4.5); Potassium 4.8 mmol/L (3.5-5.1); Sodium 134 mmol/L (136-145)
== END 2024-09-01 12:20 | disposition home or self-care (01) ==
LOC: LAB 12:23
PROVIDERS: PCP Family Medicine; Visit Provider Registered Nurse
DX: N18.32 Chronic kidney disease, stage 3b (principal); E11.22 Type 2 diabetes mellitus with diabetic chronic kidney disease
CPT/HCPCS: 36415; 80069; 82044; 82310; 83970

== ENCOUNTER 2024-11-09 19:11 | Observation (INO) | payer OTHER, MEDICARE, SELFPAY ==
--- OUTSIDE RECORDS SUMMARY | 2022-04-01 07:16 | XMS_ITS | Continuity of Care Document ---
Author Organization [facility] Address [address] [place] [address] Phone Care Team Providers Care Forestry Farm Laborer Name Role Phone AAA Provider MD, Test Unavailable Unavailabl e Advance Directives Directive Yes / No Effective Date File Name No Information Encounters Encounter Description Practice Location Reason(s) For Visit Diagnoses Date Provider Providers Copied on Encounter [facility], [address], [place], [place], [id number], [place] tel:[phone] Clinical Services Department No Information AAA Provider Test. [address] [place], [address], [place]. tel:[phone] Family History Family Member Type Diagnosis Age At Onset No Information Payers Payer name Insurance type Covered constitution party ID Authoriza tion(s) No Information Social History Type Description Quantity Date Captured Comments Alcohol Use Details Unknown Caffeine Use Details Unknown Tobacco Use Status No Information Smoking Status No Information Sex Male Chief Complaint And Reason For Visit No Information Reason For Referral Reason For Referral No Information Plan Of Treatment Date Type Action Status Goal Tdap. Due on due Goal Lipid panel. Due on due Goal Dental exam. Due on due Goal Td vaccine. Due on due Goal Depression screening. Due on due Goal HIV Routine Screening. Due o n due Goal Influenza vaccine. Due on No due History Of Present Illness Encounter Date Complaint History Of Prese nt Illness No Information Functional Status Date Functional Assessmen t No Information Instructions Date Instruction Additional Infor mation No Information Assessments Type Assessment Date No Information Patient Care Teams Name Effective Dates (start - stop) Status Members No Information
--- OUTSIDE RECORDS SUMMARY | 2022-04-01 07:16 | XMS_ITS | Continuity of Care Document ---
Author Organization [facility] Address [address] [place] [address] Phone Care Team Providers Care Smelting Engineer Name Role Phone AAA Provider MD, Test Unavailable Unavailabl e Advance Directives Directive Yes / No Effective Date File Name No Information Encounters Encounter Description Practice Location Reason(s) For Visit Diagnoses Date Provider Providers Copied on Encounter [facility], [address], [place], [place], [id number], [place] tel:[phone] Clinical Services Department No Information AAA Provider Test. [address] [place], [address], [place]. tel:[phone] Family History Family Member Type Diagnosis Age [...] Of Treatment Date Type Action Status Goal Influenza vaccine. Due on No due Goal HIV Routine Screening. Due o n due Goal Depression screening. Due on due Goal Td vaccine. Due on due Goal Dental exam. Due on due Goal Lipid panel. Due on due Goal Tdap. Due on due History Of Present Illness Encounter Date Complaint History Of Prese nt Illness No Information Functional Status Date Functional Assessmen t No Information Instructions Date Instruction Additional Infor mation No Information Assessments Type Assessment Date No Information Patient Care Teams Name Effective Dates (start - stop) Status Members No Information
--- OUTSIDE RECORDS SUMMARY | 2022-04-01 07:16 | XMS_ITS | Continuity of Care Document ---
Author Organization [facility] Address [address] [place] [address] Phone Care Team Providers Care City Recorder Name Role Phone AAA Provider MD, Test Unavailable Unavailabl e Advance Directives Directive Yes / No Effective Date File Name No Information Encounters Encounter Description Practice Location Reason(s) For Visit Diagnoses Date Provider Providers Copied on Encounter [facility], [address], [place], [place], [id number], [place] tel:[phone] Clinical Services Department No Information AAA Provider Test. [address] [place], [address], [place]. tel:[phone] Family History Family Member Type Diagnosis Age [...]
--- OUTSIDE RECORDS SUMMARY | 2023-10-04 10:00 | XMS_ITS ---
Author Organization [facility] Address [address] [place] [id number] Care Team Providers Care Coffer[place] Construction Supervisor Name Role Phone Danita RAPHAEL, James Unavailable [phone] Isabel PARI MUTUEL TICKET CASHIER, Fareed Unavailable Unavailable Chuck VILLANUEVAP, Brenna Unavailable [phone] REASON FOR VISIT New patient evaluation, No imaging found on Synapse 09/30/23 Encounters Encounter Location Date Provider Diagnosis Pain Treatment [facility], [address] [id number] 10/04/2023 Brenna Woods Other group home (current) drug therapy Z79.899 Assessments Encounter Date Diagnosis (ICD Code) Assessment Notes Treatment Notes Treatment Clinical Notes Section Notes 10/04/2023 Other technician terminal and repeater (current) drug therapy (ICD-10 - Z79.899) Patient was given a copy of the Treatment Agreement, signed by patient on . 2022 opioid (OUD) risk tool score = . This places the patient in the low/high risk category. Plan urine toxicology screen today in anticipation of possibly starting opioid therapy at future visit as well as to assess for any prescribed, unprescribed, and / or illicit controlled substance(s). Plan Of Treatment Treatment Notes Assessment Notes Other technician terminal and repeater (current) drug therapy Patient was given a copy of the Treatment Agreement, signed by patient on . 2022 opioid (OUD) risk tool score = . This places the patient in the low/high risk category. Plan urine toxicology screen today in anticipation of possibly starting opioid therapy at future visit as well as to assess for any prescribed, unprescribed, and / or illicit controlled substance(s). Progress Notes * Urbano PETERSEN GDOB: [birth year] (49 yo M)Acc No.[id number]:10/04/2023 Patient: Urbano SAENZ Provider: MARLI Mack :1975 A ge:47 Y S ex:Male Date:10/04/2023 Address:[address] [place] [address] Subjective: * Chief Complaints: * 1 . New patient evaluation. 2. No imaging found on Synapse 09/30/23. * HPI: C ervical Spine: 47 year old male presents with c/o pain f or * i n the neck. T horacic Spine: c/o pain f or * i n the mid back. L umbar Spine: c/o pain f or * i n the lower back. S acro-Iliac / Coccyx: c/o pain f or * * . P otential Work or Litigation Related Injury: No: p atient stated pain is not due to a work or litigation related injury. P hysician's referral: Physician's referral received: f ramiro [place] for radiculopathy, lumbar region; see scanned documents. P hysician/Clinic notes: Notes received from: Amarilis caputo of [facility] - Sharad Cheng [facility]; see scanned documents. P revious Imaging/Studies: MRI o f the C-spine and L-spine on 06/28/23; see scanned documents. P revious Therapy: Previous therapy: p hysical therapy for * with * benefit for weeks; home exercises for * with * benefit for weeks; chiropractic manipulation for * with * benefit for weeks; ice/heat therapy with * benefit for weeks; muscle relaxants for * with * benefit for weeks; anti-inflammatories for * with * benefit for weeks. Medication history: C ymbalta 30 mg; Neurontin 300 mg; Valium 10 mg; Ultram 50 mg; metaxalone 400 mg; acetaminophen 325/sfysiw35/cafn 40 mg. M edications: * ROS: C onstitutional: : N egative. O pthalmology: : N egative. H ENT: : N egative. C ardiovascular: : N egative. R espiratory: Sleep Apnea Screening: p atient described sleep as * with complaint of . E pworth Sleepiness Scale: * . G astrointestinal: : N egative. I ntegumentary/ Dermatology: : N egative. N eurological: Claustrophobic: * . P sychiatric: : N egative. E ndocrine: : N egative. H ematology/Lymphatic: : N egative. * Medical History: R adiculopathy, lumbar region, Chronic adjustment disorder, Migraine headaches, Seizure disorder, Intervertebral disc syndrome, Tinnitus, Pulmonary vascular disease, Hypertensivevascular disease, Imapired hearing, Diffuse TBI, GERD, Hyperlipidemia, Post traumatic stress disorder, Seizure disorder, Type 2 diabetes mellitus. Objective: * Vitals: Therapeutic Interventions: * Therapeutic Interventions: 1 . C ounseling Conditions of treatment : patient counseled to bring all medications prescribed by DATA GOVERNANCE ANALYST to every visit. Patient was advised that use of illicit drugs (including marijuana, other street drugs, prescription drugs not disclosed, and prescription drugs belonging to other persons) will result in dissolution of treatment. Patient also advised that misuse of prescription drugs (including sharing prescribed medications with other persons and inappropriate self-dosing) will result in dissolution of treatment. Patient verbalized understanding and intent to comply with treatment requirements 2 . D rug Screening Urine Sample : collected (results pending) 3 . I llicit drugs Social history : information is accurate regarding illicit drugs and dates of last use; if applicable. Patient confirmed that current listed medications are accurate and include all medications (prescribed and OTC) used within the past 2 months Assessment: * Assessment: 1. O ther technician terminal and repeater (current) drug therapy - Z79.899 (Primary) Plan: * Treatment: * Procedure Codes: G 8427 DOC MEDS VERIFIED W/[place], [address] Urine Dip Cup, Modifiers: QW * Preventive Medicine: Counseling: S moking Counseling Patient counselled on the dangers of tobacco use and urged to quit. * * ASA Status Classification: s core: * ?? need sedation??. * Images: * Electronic signature of Jordan CALLES on 11/10/2024 at 06:47 AM CDT Sign off status: Pending * Provider: MARLI Mack Date: 10/04/2023 Generated for Ke burnett/Monica/eTransmitting on: 0 11/10/2024 06:47 AM CDT History and Physical Notes * HPI (History of Present Illness) Category Sub-Category Detail Notes Category Not es Lumbar Spine pain in the lower back Cervical Spine pain in the neck Thoracic Spine pain in the mid back Sacro-Iliac / Coccyx pain * Medications Previous Therapy Previous therapy: health and physical education teacher apy for * with * benefit for weeks; home exercises for * with * benefit for weeks; chiropractic manipulation for * with * benefit for weeks; ice/heat therapy with * benefit for weeks; muscle relaxants for * with * benefit for weeks; anti-inflammatories for * with * benefit for weeks Medication history: Cymbalta 30 mg; Neur ontin 300 mg; Valium 10 mg; Ultram 50 mg; metaxalone 400 mg; acetaminophen 325/wkxamr76/cafn 40 mg Potential Work or Litigation Related Injury No: patient stated pain is not d ue to a work or litigation related injury Previous Imaging/Studies MRI of the C-spine and L-spine on 06/28/23; see scanned documents Physician's referral Physician's referra l received: from [place] Fercho Bon[place] for radiculopathy, lumbar region; see scanned documents Physician/Clinic notes [facility]; see scanned documents
--- OUTSIDE RECORDS SUMMARY | 2023-10-04 10:00 | XMS_ITS ---
Author Organization [facility] Address [address] [place] [phone] Care Team Providers Care Shift Superintendent Caustic Cresylate Name Role Phone Danita RAPHAEL, James Unavailable [phone] Isabel WAREHOUSE FREIGHT HANDLER, Fareed Unavailable Unavailable Chuck VILLANUEVAP, Brenna Unavailable [phone] REASON FOR VISIT New patient evaluation, No imaging found on Synapse 09/30/23 Encounters Encounter Location Date Provider Diagnosis Pain Treatment [facility], [address] [phone] 10/04/2023 Brenna Woods Other group home (current) drug therapy Z79.899 Assessments Encounter Date Diagnosis (ICD Code) Assessment Notes Treatment Notes Treatment Clinical Notes Section Notes 10/04/2023 Other extermination supervisor (current) drug therapy (ICD-10 - Z79.899) Patient [...] Of Treatment Treatment Notes Assessment Notes Other extermination supervisor (current) drug therapy Patient was given a [...] Urbano PETERSEN GDOB: [birth year] (49 yo M)Acc No.[id number]:10/04/2023 Patient: Urbano SAENZ Provider: MARLI Mack :1975 A ge:47 Y S ex:Male Date:10/04/2023 Address:[address] [place] [address] Subjective: * Chief Complaints: * 1 . [...] hysician's referral: Physician's referral received: f ramiro [place] for radiculopathy, lumbar region; see scanned documents. P hysician/Clinic notes: Notes received from: Amarilis caputo of [facility] - Sharad Cheng [facility]; see scanned documents. P revious Imaging/Studies: MRI [...] Ultram 50 mg; metaxalone 400 mg; acetaminophen 325//cafn 40 mg. M edications: * ROS: C [...] counseled to bring all medications prescribed by MONTESSORI LEAD TEACHER to every visit. Patient was advised that [...] months Assessment: * Assessment: 1. O ther extermination supervisor (current) drug therapy - Z79.899 (Primary) Plan: * Treatment: * Procedure Codes: G 8427 DOC MEDS VERIFIED W/[place], [address] Urine Dip Cup, Modifiers: QW * Preventive Medicine: Counseling: S moking Counseling Patient counselled on the dangers of tobacco use and urged to quit. * * ASA Status Classification: s core: * ?? need sedation??. * Images: * Electronic signature of Jordan CALLES on 11/09/2024 at 07:24 PM CDT Sign off status: Pending * Provider: MARLI Mack Date: 10/04/2023 Generated for Ke burnett/Monica/eTransmitting on: 0 11/09/2024 07:24 PM CDT History and Physical Notes * HPI (History of Present Illness) Category Sub-Category Detail Notes Category Not es Lumbar Spine pain in the lower back Cervical Spine pain in the neck Thoracic Spine pain in the mid back Sacro-Iliac / Coccyx pain * Medications Previous Therapy Previous therapy: physical science technician apy for * with * benefit for [...] Ultram 50 mg; metaxalone 400 mg; acetaminophen 325/cevbnk79/cafn 40 mg Potential Work or Litigation Related Injury No: patient stated pain is not d ue to a work or litigation related injury Previous Imaging/Studies MRI of the C-spine and L-spine on 06/28/23; see scanned documents Physician's referral Physician's referra l received: from [place] Fercho Bonilla for radiculopathy, lumbar region; see scanned documents Physician/Clinic notes Notes [facility]: [facility]; see scanned documents
[2024-11-09 19:12] VITALS: BP 142/98; PULSE 82; RESP 24; TEMP 36.2; O2SAT 99; BMI 26.4
--- NOTE | 2024-11-09 19:23 | CTR_ITS ---
PROCEDURE INFORMATION: Exam: CT Abdomen And Pelvis With Contrast Exam date and time: 11/09/2024 8:11 PM Age: 49 years old Clinical indication: Abdominal pain; Epigastric; Prior surgery; Surgery date: 6+ months; Surgery type: Gb, lspine; Additional info: Diffuse severe abdominal pain TECHNIQUE: Imaging protocol: Computed tomography of the abdomen and pelvis with contrast. Radiation optimization: All CT scans at this facility use at least one of these dose optimization techniques: automated exposure control; mA and/or kV adjustment per patient size (includes targeted exams where dose is matched to clinical indication); or iterative reconstruction. Contrast material: OMNIPAQUE 350; Contrast volume: 100 ml; Contrast route: INTRAVENOUS (IV); COMPARISON: CT abdomen pelvis w con* [id number] 05/07/2024 8:15 PM RADIATION DOSE METRICS: Total DLP (mGy-cm): 485.97 FINDINGS: Diaphragm: A small hiatal hernia present. Liver: Normal. No mass. Gallbladder and biliary ducts: The gallbladder is surgically absent. Pancreas: Extensive calcifications present throughout the pancreas. There is pancreatic ductal dilatation. No inflammation or peripancreatic fluid collections. Spleen: Normal. No splenomegaly. Adrenal glands: Normal. No mass. Kidneys and ureters: Stable bilateral innumerable renal cysts. Some of the cysts demonstrate increased density and are indeterminate, but stable compared to reference study. Punctate nonobstructing left nephrolithiasis. No hydronephrosis. Stomach and bowel: Unremarkable. No obstruction. No mucosal thickening. Appendix: No evidence of appendicitis. Intraperitoneal space: Unremarkable. No free air. No significant fluid collection. Vasculature: Scattered calcific plaque involves the aorta and iliac arteries. No aneurysm. Lymph nodes: Unremarkable. No enlarged lymph nodes. Urinary bladder: There is mild diffuse urinary bladder wall thickening. Reproductive: Unremarkable as visualized. The left testicle is located in the left inguinal canal likely related to cremasteric reflex Bones/joints: Postoperative changes from posterior fusion and discectomy at L5-S1. No acute bony abnormality. Soft tissues: Small periumbilical hernia containing fat only. CT/CT abdomen pelvis w con* [id number] IMPRESSION: 1. Mild diffuse urinary bladder wall thickening. Clinical correlation for cystitis recommended. 2. Stable findings of polycystic renal disease. 3. Chronic pancreatitis. 4. Additional chronic findings as detailed.
--- OUTSIDE RECORDS SUMMARY | 2024-11-09 19:24 | XMS_ITS | Patient Health Record ---
Author Organization [facility] Address [address] [place], [place] [id number] Care Team Providers Care Morphologist Name Role Phone Danita RAPHAEL, James Unavailable [phone] Isabel HAMM, Fareed Unavailable Unavailable Reason For Referral No Information Problems Problem Type SNOMED Code ICD Code Onset Dates Problem Status W/U Status Risk Notes Problem Cervical radiculopathy (23735645) Radiculopathy , cervical region (M54.12) Active confirmed Problem Lumbar radiculopathy (409542810) Radiculopathy , lumbar region (M54.16) Active confirmed Plan Of Treatment No Information Insurance Providers Payer Name Payer Address Payer Phone Subscriber Number Group Number Insured Name Patient Relationship to Insured Coverage Start Date Coverage End Date [employer] [address] [place] [address] [id number] Urbano Lombardi Self - patient is the insured Medical (General) History Medical History History ICD Code Radiculopathy, lumbar region Chronic adjustment disorder Migraine headaches Seizure disorder Intervertebral disc syndrome Tinnitus Pulmonary vascular disease Hypertensivevascular disease Imapired hearing Diffuse TBI GERD Hyperlipidemia Post traumatic stress disorder Seizure disorder Type 2 diabetes mellitus
[2024-11-09] MEDS: sodium chloride 0.9% 1,000 ML 999 ML IV ×2 (19:41→21:09)
[2024-11-09] MEDS: ondansetron 2 mg/ML SDV 2 mL 4 MG IVP (19:43)
[2024-11-09] MEDS: HYDROmorphone 0.5 MG/0.5 ML INJ IVP (19:45)
--- NOTE | 2024-11-09 19:52 | ED_ITS ---
HPI - Abdominal Pain 2 General: Chief Complaint: Abdominal Pain Stated Complaint: abdomen pain Time Seen by Provider: 11/09/24 19:17 History of Present Illness: 49 male with a history of chronic pancre atitis who presents to the ED with acute onset of abdominal pain and vomiting. The patient reports consuming approximately 7 beers last night at a [employer] event from 6:00 PM until 1:30 AM. He states he does not normally drink this amount. Patient reports poor sleep last night and waking up early. While attempting to do outdoor activities this morning, he became extremely hot and began vomiting repeatedly. He describes severe pain in his stomach and back, particularly in the right upper quadrant. The patient has experienced similar episodes in the past related to his chronic pancreatitis, though he cannot recall when he was last seen for this condition. Prior to arrival, he took Zofran once this morning without relief. He denies any diarrhea. The pain began today, not last night during or after drinking. Related Data Previous Rx's ?Medication ?Instructions ?Recorded ciprofloxacin HCl 500 mg tablet 500 mg PO BID #20 tabs 05/07/24 hydrocodone 5 mg-acetaminophen 325 1 tab PO Q6H PRN pa in #14 tabs 05/07/24 mg tablet ondansetron 4 mg disintegrating 4 mg PO Q6H PRN nausea and 05/07/24 tablet vomiting #14 tabs tamsulosin 0.4 mg capsule (Flomax) 0.4 mg PO DAILY #30 caps 05/07/24 oxycodone 5 mg capsule 5 mg PO Q6H PRN pain #10 cap s 11/09/24 Allergies Allergy/AdvReac Type Severity Reaction Status Date / Time No Known Allergies Allergy Verified 05/07/24 19:08 Physical Exam 2 Const: COMMON NORMALS: no acute distress, patient oriented x3 and alert G ENERAL APPEARANCE: cooperative ORIENTATION/CONSCIOUSNESS: Yes awake, Yes oriented to person, Yes oriented to place and Yes oriented to time HENMT: COMMON NORMALS: normocephalic, atraumatic, external ears normal, Normal external nose present and moist oral mucous membranes HEAD & SCALP: normal to inspection, normocephalic and atraumatic NOSE: Normal external nose present GENERAL EAR: hearing grossly impaired EXTERNAL EAR: Yes external ears normal Eye: COMMON NORMALS: Equal, round and reactive pupils present, EOMs intact bilaterally, conjunctivae normal and no scleral icterus GENERAL EYE: a ppearance normal, both eyes and all related structures EYELID: eyelids normal CONJUNCTIVA: Yes conjunctivae normal SCLERA: sclerae normal PUPIL: Yes Equal, round and reactive pupils present Neck/C-Spine: COMMON NORMALS: full ROM, supple and no JVD GENERAL: Yes normal visual inspection Lymph: LYMPHATIC: no lymphadenopathy noted and no lymphedema noted Chest: COMMONS NORMALS: normal inspection of the chest Resp: COMMON NORMALS: normal respiratory effort, No retractions and No use of accessory muscles Cardio: COMMON NORMALS: no JVD, regular rate and regular rhythm RATE: r egular rate RHYTHM: regular rhythm GI: COMMON NORMALS: Normal to inspection, nondistended, normoactive bowel sounds present : COMMON NORMALS: Yes no CVA tenderness BLADDER/KIDNEY EXAM: Yes no CVA tenderness Back/Pelvis: COMMON NORMALS: no CVA tenderness and thoracic and lumbar spine normal to inspection Extremity: COMMON NORMALS: normal to inspection, full ROM and capillary refill normal GENERAL: Yes normal exam except as noted Neuro: COMMON NORMALS: patient oriented x3, CN's II-XII intact bilaterally, moves all extremities, no focal motor deficits, no sensory deficits noted and gait normal SENSORIUM/ORIENTATION: Yes alert, Yes oriented to person, Yes oriented to place and Yes oriented to time Psych: COMMON NORMALS: mental status grossly normal, Normal thought process present, cooperative and normal affect THOUGHT PROCESS: Normal thought process present Skin: COMMON NORMALS: no rashes or lesions noted and no wounds GENERAL SKIN EXAM: no rashes or lesions noted Course 2 Vital Signs: Vital signs: Vital Signs Temperature 97.1 F L 11/09/24 19:12 Pulse Rate 70 11/09/24 19:53 Respiratory Rate 20 H 11/09/24 19:53 Blood Pressure 151/62 11/09/24 19:53 Pulse Oximetry 97 11/09/24 19:53 Oxygen Delivery Me thod Room Air 11/09/24 19:53 MDM - Abdominal Pain Medical Decision Making Summary Statement: 49 male with history of chronic pancreatitis presenting with acute onset of abdominal pain and vomiting following alcohol consumption of 7 beers the previous evening. Problem List: 1. Acute abdominal pain, likely acute pancreatitis 2. Vomiting 3. Chronic pancreatitis 4. Alcohol use Differential Diagnosis: 1. Acute pancreatitis 2. Alcoholic hepatitis 3. Cholecystitis 4. Gastritis 5. Peptic ulcer disease 6. Biliary colic ED Course: Patient received Zofran prior to arrival. Plan includes pain management, IV hydration, laboratory studies including liver and pancreatic enzymes, and CT imaging of the abdomen to evaluate for complications of pancreatitis or other acute abdominal pathology. EKG when compared to prior is unremarkable. Does have sinus bradycardia. CT is without acute findings. Does have chronic pancreatitis but no acute change in enzymes. Transient bradycardia was noted with pain medication. Lab Data 11/09/24 20:05 11/09/24 20:05 Labs/Radiology: Radiology Impressions Abdomen/Pelvis CT 11/09/24 19:23 IMPRESSION: 1. Mild diffuse urinary bladder wall thickening. Clinical correlation for cystitis recommended. 2. Stable findings of polycystic renal disease. 3. Chronic pancreatitis. 4. Additional chronic findings as detailed. Laboratory Results WBC 8.93 10^3/uL (3.29-11.43) 11/09/24 20:05 RBC 4.77 10^6/uL (3.85-5.65) 11/09/24 20:05 Hgb 14.70 g/dL (11.27-16.99) 11/09/24 20:05 Hct 43.1 % (37-53) 11/09/24 20:05 MCV 90.4 fl (82-101) 11/09/24 20:05 MCH 30.8 pg (27-33) 11/09/24 20:05 MCHC 34.1 g/dL (30-55) 11/09/24 20:05 RDW 12.8 % (12.1-15.1) 11/09/24 20:05 Plt Count 212 10^3/cmm (157-399) 11/09/24 20:05 MPV 10.0 fL (7.4-10.4) 11/09/24 20:05 Neut % (Auto) 83.4 % 11/09/24 20:05 Lymph % (Auto) 11.1 % 11/09/24 20:05 [place] % (Auto) 4.1 % 11/09/24 20:05 Eos % (Auto) 0.1 % 11/09/24 20:05 Baso % (Auto) 1.0 % 11/09/24 20:05 Neut # (Auto) 7.44 10^3/uL (1.8-7.7) 11/09/24 20:05 Lymph # (Auto) 1.0 10^3/uL (0.8-4.8) 11/09/24 20:05 [place] # (Auto) 0.4 10^3/uL (0.2-0.9) 11/09/24 20:05 Eos # (Auto) 0.0 10^3/uL (0.0-0.8) 11/09/24 20:05 Baso # (Auto) 0.1 10^3/uL (0.0-0.1) 11/09/24 20:05 Nucleated RBC % (auto) 0 % 11/09/24 20:05 Nucleated RBCs # 0.0 /100WBC 11/09/24 20:05 Sodium 137 mmol/L (136-145) 11/09/24 20:05 Potassium 4.2 mmol/L (3.5-5.1) 11/09/24 20:05 Chloride 96 mmol/L (98-107) L 11/09/24 20:05 Carbon Dioxide 17 mmol/L (22-29) L 11/09/24 20:05 Anion Gap 28.2 (5-19) H 11/09/24 20:05 BUN 30 mg/dL (6-20) H 11/09/24 20:05 Creatinine 1.8 mg/dL (0.7-1.2) H 11/09/24 20:05 GFR Calculation 40.6 mL/min (90-130) L 11/09/24 20:05 Glucose 150 mg/dL (65-115) H 11/09/24 20:05 Calculated Osmolality 293 mOsm/kg (285-295) 11/09/24 20:05 Lactic Acid 3.2 mmol/L (0.5-2.2) H 11/09/24 20:05 Calcium 9.4 mg/dL (8.5-10.5) 11/09/24 20:05 Total Bilirubin 0.7 mg/dL (0.15-1.2) 11/09/24 20:05 AST 28 U/L (0-40) 11/09/24 20:05 ALT 20 U/L (0-41) 11/09/24 20:05 Alkaline Phosphatase 124 U/L (40-130) 11/09/24 20:05 Total Protein 7.3 g/dL (6.6-8.7) 11/09/24 20:05 Albumin 4.6 g/dL (3.5-5.2) 11/09/24 20:05 Globulin 2.7 g/dL (1.3-4.6) 11/09/24 20:05 Lipase 9 U/L (13-60) L 11/09/24 20:05 Urine Color Yellow (Yellow) 11/09/24 20:08 Urine Appearance Clear (CLEAR) 11/09/24 20:08 Urine pH 7.5 (5-7) 11/09/24 20:08 Ur Specific [place] 1.022 (1.005-1.030) 11/09/24 20:08 Urine Protein 1+ (Negative) A 11/09/24 20:08 Urine Glucose (UA) 1+ (Normal) H 11/09/24 20:08 Urine Ketones 2+ (Negative) H 11/09/24 20:08 Urine Blood Negative (Negative) 11/09/24 20:08 Urine Nitrate Negative (Negative) 11/09/24 20:08 Urine Bilirubin Negative (Negative) 11/09/24 20:08 Urine Urobilinogen 1.0 mg/dL (Negative) 11/09/24 20:08 Ur Leukocyte Esterase Negative (Negative) 11/09/24 20:08 Urine RBC 0-2 /hpf (0-2) 11/09/24 20:08 Urine WBC 0-5 /hpf (0-5) 11/09/24 20:08 Ur Squamous Epith Cells 0-5 /hpf (0-5) 11/09/24 20:08 Amorphous Sediment Not Reportable 11/09/24 20:08 Urine Bacteria None seen /hpf (NONE) 11/09/24 20:08 Hyaline Casts 0-4 /lpf H 11/09/24 20:08 Ethyl Alcohol < 10 mg/dL (0-10) 11/09/24 20:05 All radiology interpretation(s) finalized by discharge Discharge Plan Discharge Patient Disposition: Home Clinical Impression: Abdominal pain, Chronic pancreatitis Condition: Stable Prescriptions: New oxycodone 5 mg capsule 5 mg PO Q6H PRN (Reason: pain) Qty: 10 0RF No Action tamsulosin [Flomax] 0.4 mg capsule 0.4 mg PO DAILY Qty: 30 0RF ciprofloxacin HCl 500 mg tablet 500 mg PO BID Qty: 20 0RF hydrocodone-acetaminophen 5-325 mg tablet 1 tab PO Q6H PRN (Reason: pain) Qty: 14 0RF ondansetron 4 mg tablet,disintegrating 4 mg PO Q6H PRN (Reason: nausea and vomiting) Qty: 14 0RF Discharge Orders: Discharge ED (Routine); Ordered 11/09/24 Ordered By: Kaushik Meier Referrals: Maria Eugenia Barney MD [Primary Care Provider, Family Practice] Discharge Diet: Advance as tolerated Discharge Activity: Resume usual activity Patient Instructions: Abdominal Pain (ED), Opioid Safety, Pain Management, Patient Portal & Brie Instructions Print Language: American Coding Level of Care Code ED [employer] for Adamaris Cherry
[2024-11-09 19:53] VITALS: BP 151/62; PULSE 70; RESP 20; O2SAT 97
--- NOTE | 2024-11-09 20:04 | ECG_ITS ---
LOG607[facility] Test Date: 2024-11-09 Pat Name: Urbano Lombardi Department: Room: EDIP Gender: Male Transformation Analyst: : 1975 Requested By: Kaushik Meier Order Number: [id number] Reading MD: Measurements Intervals [place] Rate: 40 P: 71 DE: 184 QRS: 75 QRSD: 90 T: 76 QT: 503 QTc: 414 Interpretive Statements SINUS BRADYCARDIA SEPTAL MYOCARDIAL INFARCTION , OF INDETERMINATE AGE [40+ ms Q WAVE IN V1/V2] CRITICAL TEST RESULT No previous ECG available for comparison [email or web address]
[2024-11-09] MEDS: iohexol 350 mg/mL 500 mL Btl (per mL) IV (20:14)
[2024-11-09 20:22] LABS: Bilirubin Urine Negative (Negative); Blood Urine Negative (Negative); Glucose Urine UA 1+ (Normal); Ketones Urine 2+ (Negative); Leukocyte Esterase Urine Negative (Negative); Nitrate Urine Negative (Negative); Protein Urine 1+ (Negative); Specific Gravity, Urine 1.022 (1.005-1.030); Urine Appearance Clear (CLEAR); Urine Color Yellow (Yellow); pH Urine 7.5 (5-7)
[2024-11-09 20:22] LABS: Basophils # 0.1 10^3/uL (0.0-0.1); Eosinophils % 0.1 %; Hematocrit 43.1 % (37-53); Lymphocytes % 11.1 %; Mean Corpuscular HGB Conc 34.1 g/dL (30-55); Mean Corpuscular Hemoglobin 30.8 pg (27-33); Mean Corpuscular Volume 90.4 fl (82-101); Monocytes # 0.4 10^3/uL (0.2-0.9); Monocytes % 4.1 %; Neutrophils # 7.44 10^3/uL (1.8-7.7); Neutrophils % 83.4 %; Nucleated Red Blood Cells % 0 %; Platelet Count 212 10^3/cmm (157-399); Red Blood Count 4.77 10^6/uL (3.85-5.65); Red Cell Distribution Width 12.8 % (12.1-15.1); White Blood Count 8.93 10^3/uL (3.29-11.43)
[2024-11-09 20:27] LABS: Add Urine Microscopic? YES; Bacteria Urine None Seen /hpf; Hyaline Casts Urine 0-4 /lpf; RBC Urine 0-2 /hpf (0-2); Squamous Epithelial Cell Urine 0-5 /hpf (0-5); WBC Urine 0-5 /hpf (0-5)
[2024-11-09 20:43] LABS: Alanine Aminotransferase 20 U/L (0-41); Albumin Level 4.6 g/dL (3.5-5.2); Alkaline Phosphatase 124 U/L (40-130); Anion Gap 28.2 (5-19); Aspartate Amino Transferase 28 U/L (0-40); Blood Urea Nitrogen 30 mg/dL (6-20); Calcium 9.4 mg/dL (8.5-10.5); Carbon Dioxide 17 mmol/L (22-29); Chloride 96 mmol/L (98-107); Creatinine Clr Calc Pharmacy 60.4408; Globulin 2.7 g/dL (1.3-4.6); Glomerular Filtration Rate 40.6 mL/min (90-130); Glucose 150 mg/dL (65-115); Lipase 9 U/L (13-60); Osmolality Calculated 293 mOsm/kg (285-295); Potassium 4.2 mmol/L (3.5-5.1); Sodium 137 mmol/L (136-145); Total Bilirubin 0.7 mg/dL (0.15-1.2); Total Protein 7.3 g/dL (6.6-8.7)
[2024-11-09 20:44] LABS: Alcohol Level < 10 mg/dL (0-10); Lactic Sepsis W/Reflex 3.2 mmol/L (0.5-2.2)
[2024-11-09] MEDS: lidocaine 2% viscous 15 ML, aluminum-mag hydrox-simethicon 30 ML, sucralfate oral liq 1 GM PO (21:08)
[2024-11-09] MEDS: ondansetron 2 mg/ML SDV 2 mL 8 MG IVP (21:08)
[2024-11-09] MEDS: haloperidol inj 5 mg/mL INJ 1 mL 2 MG IVP (21:49)
[2024-11-09 22:06] LABS: Reflex Lactate Order REFLEX LACTIC ORDERD
--- NOTE | 2024-11-09 23:25 | P.HP_ITS ---
Providers/Chief Complaint 2 Admitting Physician: Job Mims MD Primary Care Provider: Maria Eugenia Barney MD Chief Complaint: abdomen pain History of Present Illness Urbano Lombardi is a 49 year old male with history of polycystic kidney disease and chronic pancreatitis. Patient does drink some alcohol which was too much given his chronic pancreatitis but he has polycystic kidney disease very severe. He had his gallbladder removed years ago and he drank heavily in the i[place] 1/5 of [place] a week or a sixpack a day of beer. He has not been drinking heavily since he was diagnosed with gallstone pancreatitis and gallbladder was removed. They told him not to drink much and now he drinks a sixpack a week. [facility]. This morning he was Hot and sweating and vomiting. He had severe pain in his abdomen and back particularly right upper quadrant he has had these sort of symptoms with chronic pancreatitis in the past. Patient states he was on pancrelipase briefly in the past but has not chronically been on it. 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 He is on 100% disability now with history of explosive injury, kidney disease and pancreatitis. Review of Systems 2 Narrative: General no fevers chills he did have sweats today's weight is stable at 195 pounds 6 foot 1 Cardiovascular no chest pain palpitations or edema Respiratory no shortness of breath cough wheezing GI positive for nausea vomiting abdominal pain positive for dysuria today urine has been dark he is not been taking much fluid Neuro he has had history of seizures and traumatic brain injury Genetic patient has 1 biological son that he is not in contact with Medications/Allergies Home Medications ?Medication ?Instructions ?Recorded ?Confirmed ?Last Taken ?Type ciprofloxacin HCl 500 mg tablet 500 mg PO BID #20 tabs 05/07/24 Unknown Rx hydrocodone 5 mg-acetaminophen 325 1 tab PO Q6H PRN pa in #14 tabs 05/07/24 Unknown Rx mg tablet ondansetron 4 mg disintegrating 4 mg PO Q6H PRN nausea and 05/07/24 Unknown Rx tablet vomiting #14 tabs tamsulosin 0.4 mg capsule (Flomax) 0.4 mg PO DAILY #30 caps 05/07/24 Unknown Rx oxycodone 5 mg capsule 5 mg PO Q6H PRN pain #10 cap s 11/09/24 Unknown Rx Allergies Allergy/AdvReac Type Severity Reaction Status Date / Time No Known Allergies Allergy Verified 05/07/24 19:08 PFSH Acute 2 PFSH: Social History (Updated 11/09/24 @ 23:31 by Job Mims MD) Additional social history: Patient does not smoke or use drugs he drinks alcohol 6 pack weekly split into nights of the week. He states he was not aware he could not drink at all but will stop drinking completely after we discussed his chronic pancreatitis. He is companied by his Eri. 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 Vitals/I&O/Wt Last Vital Signs Temp 97.1 F L 11/09/24 19:12 Pulse 70 11/09/24 19:53 Resp 20 H 11/09/24 19:53 BP 151/62 11/09/24 19:53 Pulse Ox 97 11/09/24 19:53 O2 Del Method Room Air 11/09/24 19:53 11/09/24 11/09/24 11/10/24 14:59 22:59 06:59 Intake Total 2300 / 2300 Balance 2300 / 2300 Weight last 48 hrs Weight 90.718 kg Physical Exam 2 Narrative: General well-developed well-nourished male in no acute cardiopulmonary stress CV regular rate and rhythm Lungs clear to auscultation bilaterally Abdomen positive bowel sounds soft he has tenderness in the right and mid epigastric area of the abdomen. No rebound tenderness Calves no tenderness cords pretibial edema Mood and affect normal Skin is warm and dry Data 11/09/24 20:05 11/09/24 20:05 A&P Assessment and plan (1) Acute pancreatitis: Patient with chronic pancreatitis so lipase is not elevated but he has abdominal pain nausea vomiting. I think this was exacerbated by the 7 beers that he had at the [facility]. He is counseled that he cannot drink alcohol at all. Patient is agreeable (2) Chronic pancreatitis: I think his chronic pancreatitis is due to his polycystic kidney disease and with some contribution from alcohol. Does not sound like the patient does not really a bad alcoholic in the typical sense of drinking daily. I counseled him that if he is not able to stop drinking with the knowledge that I have discussed with him today then he would most certainly be an alcoholic Patient see a metallographic technician for hepatobiliary disease (3) Polycystic kidney disease: He sees a clinical informatics director. I think he may also need to see a GI specialist regarding his pancreatitis (4) Chronic cystitis: Patient with symptoms of dysuria and also bladder wall thickening. Will check postvoid residual bladder scans. If retaining greater than 300 cc then he will need to straight cath and also to start Flomax PDMP PDMP Reviewed: Not Reviewed Attestations 2 Medical Necessity Statement*: Patient is admitted to the hospital for intractable nausea vomiting and will be treated with antiemetics plus morphine for pain. Anticipate 24 to 48 hours in hospital Coding Level of Care Code Acute Code for Chg Fwd Diagnoses Acute pancreatitis K85.90 Chronic pancreatitis K86.1 Polycystic kidney disease Q61.3 Chronic cystitis N30.20
[2024-11-09 23:40] LABS: Lactic Acid level (Lactate) 1.8 mmol/L (0.5-2.2)
[2024-11-10 00:20] VITALS: RESP 20
[2024-11-10] MEDS: sodium chloride 0.9% 1,000 ML 150 ML IV ×2 (00:20→06:15)
[2024-11-10] MEDS: famotidine 20 mg/2 mL INJ IVP (00:20)
[2024-11-10] MEDS: heparin 5,000 unit/mL INJ 1 mL 5000 UNIT SUBCUT (00:20)
[2024-11-10] MEDS: morphine 4 mg/mL SDV 1 mL IVP (00:20)
[2024-11-10] MEDS: ondansetron 2 mg/ML SDV 2 mL 4 MG IVP (00:50)
[2024-11-10] MEDS: haloperidol inj 5 mg/mL INJ 1 mL 2 MG IVP ×2 (01:34→06:11)
[2024-11-10 02:12] VITALS: BP 131/73; PULSE 93; RESP 18; O2SAT 97
[2024-11-10 03:20] VITALS: BP 131/73; PULSE 73; RESP 20; O2SAT 98
[2024-11-10 05:07] LABS: Alanine Aminotransferase 21 U/L (0-41); Alkaline Phosphatase 122 U/L (40-130); Anion Gap 20.6 (5-19); Aspartate Amino Transferase 33 U/L (0-40); Blood Urea Nitrogen 26 mg/dL (6-20); Calcium 8.6 mg/dL (8.5-10.5); Carbon Dioxide 23 mmol/L (22-29); Chloride 102 mmol/L (98-107); Creatinine Clr Calc Pharmacy 60.4408; Globulin 2.6 g/dL (1.3-4.6); Glomerular Filtration Rate 40.6 mL/min (90-130); Glucose 111 mg/dL (65-115); Osmolality Calculated 297 mOsm/kg (285-295); Potassium 4.6 mmol/L (3.5-5.1); Sodium 141 mmol/L (136-145); Total Bilirubin 0.4 mg/dL (0.15-1.2); Total Protein 6.6 g/dL (6.6-8.7)
--- OUTSIDE RECORDS SUMMARY | 2024-11-10 06:48 | XMS_ITS | Patient Health Record ---
Author Organization [facility] Address [address] [place], [place] [id number] Care Team Providers Care Deburrer Name Role Phone Danita RAPHAEL, James Unavailable [phone] Isabel HAMM, Fareed Unavailable Unavailable Reason For Referral No Information Problems Problem Type SNOMED Code ICD Code Onset Dates Problem Status W/U Status Risk Notes Problem Cervical radiculopathy (97217815) Radiculopathy , cervical region (M54.12) Active confirmed Problem Lumbar radiculopathy (395822284) Radiculopathy , lumbar region (M54.16) Active confirmed Plan Of Treatment No Information Insurance Providers Payer Name Payer Address Payer Phone Subscriber Number Group Number Insured Name Patient Relationship to Insured Coverage Start Date Coverage End Date [employer] [address] [place] [address] [id number] Urbano Lombardi Self - patient is the insured Medical (General) History Medical History History ICD Code Radiculopathy, lumbar region Chronic adjustment disorder Migraine headaches Seizure disorder Intervertebral disc syndrome Tinnitus Pulmonary vascular disease Hypertensivevascular disease Imapired hearing Diffuse TBI GERD Hyperlipidemia Post traumatic stress disorder Seizure disorder Type 2 diabetes mellitus
[2024-11-10 07:07] VITALS: BP 144/81; PULSE 101; RESP 21; O2SAT 99
--- NOTE | 2024-11-10 07:25 | PC.NURSE ---
this nurse assessed pt's call light on, pt states this is ridiculous, I am wanting to be discharged, my is on her way . this nurse assessed situation and attempted to provide solutions. pt states he is uncomfortable in ER bed and ER room, nurse offered to get hospital bed, pt declined, states he should be in his room, he had been in ER since 1900 last night. this nurse explained that patient will still receive inpatient care via hospitalist and inpatient orders while in ER, pt adamantly declined, states wanting to leave. this nurse contacted Dr. Mims, Dr. Mims at bedside at this time. upon rounding this morning at approx 0700, pt declined any needs.
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
[2024-11-10 08:09] VITALS: BP 144/81; PULSE 91; RESP 18; O2SAT 96
== END 2024-11-10 08:11 | disposition home or self-care (01) ==
LOC: ER 21:09 → ER IP 11-10 01:49
PROVIDERS: Admitting Provider Internal Medicine; Emergency Provider Emergency Medicine; PCP Family Medicine; Visit Provider Family Medicine
DX: K86.1 Other chronic pancreatitis (principal); K85.90 Acute pancreatitis without necrosis or infection, unspecified; Q61.3 Polycystic kidney, unspecified; N30.20 Other chronic cystitis without hematuria; Z87.828 Personal history of other (healed) physical injury and trauma; Z90.49 Acquired absence of other specified parts of digestive tract
CPT/HCPCS: 36415; 74177; 80053; 80307; 81001; 83605; 83690; 85025; 93005; 96372; 96374; 96375; 96376; 99285; G0378; J1171; J1630; J1644; J2270; J2405; J3490; J7030; J9999

== ENCOUNTER → 2024-11-13 15:17 | Outpatient (BNVA) | payer OTHER, SELFPAY | PROVIDERS: PCP Family Medicine; Visit Provider Podiatrist Foot & Ankle Surgery | DX: M79.671 Pain in right foot (principal); M79.672 Pain in left foot; M20.11 Hallux valgus (acquired), right foot; M20.12 Hallux valgus (acquired), left foot; L84 Corns and callosities; E11.69 Type 2 diabetes mellitus with other specified complication | CPT/HCPCS: 73630; 99204 ==

== ENCOUNTER 2024-12-08 15:15 | Emergency (ER) | payer OTHER, SELFPAY ==
--- OUTSIDE RECORDS SUMMARY | 2022-04-01 07:16 | XMS_ITS | Continuity of Care Document ---
Author Organization [facility] Address [address] [facility] [address] [place] [address] Phone Care Team Providers Care Dry Kiln Burner Name Role Phone AAA Provider MD, Test Unavailable Unavailabl e Advance Directives Directive Yes / No Effective Date File Name No Information Encounters Encounter Description Practice Location Reason(s) For Visit Diagnoses Date Provider Providers Copied on Encounter [facility], [address] [facility], [place], [place], [id number], [place] tel:[phone] Clinical Services Department No Information AAA Provider Test. [address] [place], [address], [place]. tel:[phone] Family History Family Member Type Diagnosis Age At Onset No Information Payers Payer name Insurance type Covered green party ID Authoriza tion(s) No Information Social [...]
[2024-12-08] VITALS (10 sets, daily range): BP systolic 93–134; BP diastolic 63–95; PULSE 75–109; RESP 12–23; TEMP 36.6; O2SAT 91–98
--- OUTSIDE RECORDS SUMMARY | 2024-12-08 15:20 | XMS_ITS | Clinical Summary ---
Author Organization [facility] Address [address] [address] Phone Care Team Providers Care Supervisor [employer] Name Role Phone Unavailable Primary Care Provider Unavailabl e Allergies No known active allergies Medications atorvastatin (LIPITOR) 40 MG tabletIndicatio ns:hyperlipidem ia Take one tablet (40 mg total) by mouth one (1) time a day Active diclofenac (VOLTAREN) 1 % topical gel Apply one application. (2 g total) topically in the morning and one application. (2 g total) at noon and one application. (2 g total) in the evening and one application. (2 g total) before bedtime. Active divalproex (DEPAKOTE) [address] tablet Take one tablet (500 mg total) by mouth nightly Active DULoxetine (CYMBALTA) [address] capsuleIndicati ons:depression Take one capsule (30 mg total) by mouth one (1) time a day Active finasteride (PROSCAR) 5 mg tablet Take one tablet (5 mg total) by mouth one (1) time a day Active gabapentin (NEURONTIN) 300 MG capsuleIndicati ons:neuropathic pain Take one capsule (300 mg total) by mouth 3 (three) times a day Active lamoTRIgine (LAMICTAL) 200 MG tabletIndicatio ns:bipolar disorder Take one-half tablet (100 mg total) by mouth one (1) time a day Active lisinopriL (PRINIVIL) 40 MG tabletIndicatio ns:hypertension Take one-half tablet (20 mg total) by mouth one (1) time a day Active prazosin (MINIPRESS) 5 MG capsuleIndicati ons:Chronic PTSD with Trauma Nightmares Take 2 mg by mouth nightly Active QUEtiapine (SEROQUEL XR) 200 MG 24 hr tabletIndicatio ns:bipolar disorder Take one tablet (200 mg total) by mouth nightly Active tamsulosin (FLOMAX) 0.4 mg 24 hr capsuleIndicati ons:BPH Take one capsule (0.4 mg total) by mouth every evening Active pantoprazole (PROTONIX) [address] tabletIndicatio ns:gastroesopha geal reflux disease Take one tablet (40 mg total) by mouth in the morning and at bedtime Active Active Problems Problem Noted Date Diagnosed Date BPH (benign prostatic hyperplasia) 07/13/2023 Benign essential HTN 07/13/2023 GERD (gastroesophageal reflux disease) HLD (hyperlipidemia) 07/13/2023 PTSD (post-traumatic stress disorder) 07/13/2023 DM2 (diabetes mellitus, type 2) ([facility] ) Seizure disorder ([facility] ) 07/13/2023 Family History Medical History Relation Name Comments Heart disease Father High Blood Pressure Father Kidney cancer Father High Blood Pressure Maternal Grandmother Cancer Mother Relation Name Status Comments Father Maternal Grandmother Mother Social History Tobacco Use Types Packs/Day Years Used Date Smoking Tobacco: Every Day Cigarettes 0.5 32.4 Started: 07/18/1992 Smokeless Tobacco: Former Tobacco Cessation:Ready to Q uit: Yes; Counseling Given: Yes Alcohol Use Standard Drinks/Week Comments Not Currently 0 (1 standard drink = 0.6 oz pur e alcohol) rarely Sex and Gender Information Value Date Recorded Sex Assigned at Not on file Legal Sex Male 1:50 PM 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 Gender Identity Not on file Sexual Orientation Not on file Last Filed Vital Signs Vital Sign Reading Time Taken Comments Blood Pressure 119/74 07/19/2023 1:16 PM 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 Pulse 97 07/19/2023 1:16 PM 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 Temperature - - Respiratory Rate - - Oxygen Saturation - - Inhaled Oxygen Concentration - - Weight 84.8 kg (187 lb) 07/19/2023 1:16 PM 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 Height 185.4 cm (6' 1 ) 07/19/2023 1:16 PM 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 Body Mass Index 24.67 07/19/2023 1:16 PM 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 Plan of Treatment Health Maintenance Due Date Last Done Comments Colonoscopy Every 6 Months 1977 Colorectal Cancer Screening Annual FOBT/FIT Test 10/27 Colorectal Cancer Screening Cologuard 1977 Colorectal Cancer Screening Flex Sigmoidoscopy 978 Pneumococcal Vaccine High Risk 1977 Annual Depression Screening 1988 Annual Physical 10/28/1995 Diabetic Eye Exam WITHOUT Retinopathy 10/28/1995 Glycosylated Hemoglobin 10/28/1995 Hepatitis C Antibody Screen 10/28/1995 Kidney Health Eval - eGFR 10/28/1995 Kidney Health Eval - uACR 10/28/1995 DTap/Tdap/Td Vaccines (1 - Tdap) 1996 Colorectal CA Screen 10 Year Colonoscopy 2022 Colorectal Cancer Screening 2022 Diabetic Foot Exam 07/13/2023 Influenza Vaccine 01/15/2025 Insurance [facility] [employer] VACCN
--- OUTSIDE RECORDS SUMMARY | 2024-12-08 15:20 | XMS_ITS | Clinical Summary ---
Author Organization [facility] Address [address] [place] [id number] Care Team Providers Care Ski Patrol Name Role Phone Sharad Li DO Primary Care Provider [phone] Allergies Active Allergy Reactions Criticality Noted Date Comments Fish Oil 03/28/2022 Patient reports dietary allergy to Tuna Medications finasteride (PROSCAR) 5 MG tablet Take 1 tablet by mouth 1 (one) time each day 2 Active QUEtiapine (SEROquel) 100 MG tablet Take 1 tablet by mouth every night Active prazosin (MINIPRESS) 5 MG capsule Take 5 mg by mouth every night 2 Active pantoprazole (PROTONIX) 40 MG EC tablet Take 1 tablet by mouth in the morning and 1 tablet in the evening. Active lamoTRIgine (LaMICtal) 100 MG tablet Take 200 mg by mouth 1 (one) time each day 2 Active gabapentin (NEURONTIN) 100 MG capsule Take 200 mg by mouth at bed time 2 Active tamsulosin (FLOMAX) 0.4 MG 24 hr capsule Take 0.4 mg by mouth 1 (one) time each day Active DULoxetine (CYMBALTA) [address] capsule Take 30 mg by mouth 1 (one) time each day Do not crush or chew. Active divalproex (DEPAKOTE) 500 MG EC tablet Take 500 mg by mouth in the morning. Active lisinopril 40 MG tablet Take 20 mg by mouth in the morning. Active Diclofenac Sodium (Voltaren) 1 % gel Apply 2 g topically in the morning and 2 g at noon and 2 g in the evening and 2 g before bedtime. Apply one application. (2 g total) topically in the morning and one application. (2 g total) at noon and one application. (2 g total) in the evening and one application. (2 g total) before bedtime. . Active amoxicillin (AMOXIL) 500 MG capsule Take 500 mg by mouth in the morning and 500 mg at noon and 500 mg in the evening. 5 Active butalbital-acet aminophen-caffe ine (FIORICET, ESGIC) 50-325-40 MG per tablet Take 1 tablet by mouth every 4 (four) hours if needed 3 Active celecoxib (CeleBREX) 100 MG capsule Take 100 mg by mouth in the morning and 100 mg in the evening. 3 Active clonazePAM (KlonoPIN) 0.5 MG tablet Take 1 tablet by mouth 2 (two) times a day if needed 3 Active Empagliflozin 25 MG tablet Take 25 mg by mouth 1 (one) time each day 5 Active metaxalone (SKELAXIN) 800 MG tablet Take 1 tablet by mouth every 6 (six) hours if needed 3 Active buPROPion SR (WELLBUTRIN SR) 100 MG 12 hr tablet Take 100 mg by mouth in the morning and 100 mg in the evening. 5 Active aspirin 325 MG EC tablet Take 1 tablet by mouth every morning 3 Active Active Problems Problem Noted Date Diagnosed Date Polycystic kidney, unspecified type Essential hypertension Diabetes mellitus without me ntion of complication, type II or unspecified type, not stated as uncontrolled Family History Medical History Relation Comments Autosomal Dominant Polycystic Kidney Disease Fat her Heart disease Father Hypertension Father Kidney disease Father Relation Status Comments Father (Age 56) Heart Attack Mother (Age 23) Breast Cancer Social History Tobacco Use Types Packs/Day Years Used Date Smoking Tobacco: Former Cigarettes Smokeless Tobacco: Current Chew Comments:Pouch Alcohol Use Standard Drinks/Week Comments Yes 3 (1 standard drink = 0.6 oz pur e alcohol) Sex and Gender Information Value Date Recorded Sex Assigned at Not on file Legal Sex Male 10:08 AM EST Gender Identity Not on file Sexual Orientation Not on file Last Filed Vital Signs Vital Sign Reading Time Taken Comments Blood Pressure 112/62 09/04/2024 12:47 PM CDT Pulse 92 09/04/2024 12:47 PM CDT Temperature - - Respiratory Rate - - Oxygen Saturation 95% 09/04/2024 12:47 PM CDT Inhaled Oxygen Concentration - - Weight 87.7 kg (193 lb 6.4 oz) 09/04/2024 12:47 PM CDT Height 185.4 cm (6' 1 ) 09/04/2024 12:47 PM CDT Body Mass Index 25.52 09/04/2024 12:47 PM CDT Plan of Treatment Upcoming Encounters Date Type Department Care Team (Late st Contact Info) Description 01/08/2025 1:30 PM CDT Office Visit [facility] [address] [place] [address] Lulú Wilcox, HANSEL [address] [facility] [address] [place] [address] Health Maintenance Due Date Last Done Comments Hepatitis B Vaccine (2 of 3 - Hep B Twinrix 3-dose series) 11/25/2011 10/28/2011, 03/09/2010, 12/20/2009 Pneumococcal Vaccine: Peds ( 0 to 5 Years) and At-Risk Patients (6 to 49 Years) (2 of 2 - PCV) 08/02/2015 08/01/2014, 08/01/2014, 01/16/2012 Diabetes: Hemoglobin A1C 04/26/2023 03/28/2022 Diabetes: Ophthalmology Exam 04/26/2023 07/09/2011 Diabetes: Pedal Pulse Checked 04/26/2023 Diabetes: Sensory Foot Exam 04/26/2023 Diabetes: Visual Foot Exam 04/26/2023 Influenza Vaccine (#1) 2025 0, 03/18/2018, 05/14/2017, Additional history exists Insurance [facility] [employer] 1,2,3 (VACCN) Care Teams Ski Patrol Relationship Specialty Start Date End Date Sharad Li DO [address] [place] [address] PCP - General 10/20/23
--- OUTSIDE RECORDS SUMMARY | 2024-12-08 15:20 | XMS_ITS | Encounter Summary ---
Author Organization [facility] [employer] [facility] Address [address] [facility] [address] [place] [address] Phone Care Team Providers Care Supervisor [employer] Name Role Phone Sharad Li DO Primary Care Provider [phone] Encounter Details Date Type Department Care Team (Late st Contact Info) Description 04/26/2023 Orders Only [facility] [address] [facility] [address] [place] [address] Type 2 diabetes mellitus with diabetic chronic kidney disease (HCC) Social History Tobacco Use Types Packs/Day Years Used Date Smoking Tobacco: Never Assessed Sex and Gender Information Value Date Recorded Sex Assigned at Not on file Legal Sex Male 10:08 AM EST Gender Identity Not on file Sexual Orientation Not on file documented as of this encounter Plan of Treatment Upcoming Encounters Date Type Department Care Team (Late st Contact Info) Description 01/08/2025 1:30 PM CDT Office Visit [facility], [facility] [address] [place] [address] Lulú Wilcox, SENIOR SECURITY ANALYST [address] [facility] [address] [place] [address] documented as of this encounter Visit Diagnoses Diagnosis Type 2 diabetes mellitus with diabetic chronic kidney disease (HCC) documented in this encounter Care Teams Supervisor [employer]ling [employer] Joining Relationship Specialty Start Date End Date Sharad Li DO [address] [place] [address] PCP - General 10/20/23 documented as of this encounter
[2024-12-08 16:23] LABS: Hematocrit 46.4 % (37-53); Hemoglobin 15.10 g/dL (11.27-16.99); Mean Corpuscular HGB Conc 32.5 g/dL (30-55); Mean Corpuscular Hemoglobin 30.0 pg (27-33); Mean Corpuscular Volume 92.1 fl (82-101); Nucleated Red Blood Cells % 0 %; Platelet Count 201 10^3/cmm (157-399); Red Blood Count 5.04 10^6/uL (3.85-5.65); White Blood Count 7.06 10^3/uL (3.29-11.43)
[2024-12-08 16:47] LABS: Glucose Urine UA 3+ (Normal); Nitrate Urine Negative (Negative); Specific Gravity, Urine 1.030 (1.005-1.030)
[2024-12-08 16:48] LABS: Alanine Aminotransferase 19 U/L (0-41); Albumin Level 4.4 g/dL (3.5-5.2); Alkaline Phosphatase 99 U/L (40-130); Anion Gap 19.7 (5-19); Aspartate Amino Transferase 20 U/L (0-40); Blood Urea Nitrogen 20 mg/dL (6-20); Calcium 9.6 mg/dL (8.5-10.5); Carbon Dioxide 25 mmol/L (22-29); Chloride 102 mmol/L (98-107); Creatinine Clr Calc Pharmacy 53.2252; Globulin 2.8 g/dL (1.3-4.6); Glucose 135 mg/dL (65-115); Osmolality Calculated 299 mOsm/kg (285-295); Potassium 4.7 mmol/L (3.5-5.1); Sodium 142 mmol/L (136-145); Total Protein 7.2 g/dL (6.6-8.7)
[2024-12-08 16:50] LABS: Add Urine Microscopic? YES
[2024-12-08 16:55] LABS: Acetaminophen < 5.0 ug/mL (10-30); Alcohol Level < 10 mg/dL (0-10); Salicylate < 0.3 mg/dL (3-10)
[2024-12-08 16:56] LABS: PCP Screen Urine Negative (Negative)
--- NOTE | 2024-12-08 17:00 | W.ED.PSYCHS ---
Documented by User: Monico Schroeder, 12/11/24 06:34 HPI - Psych General: Chief Complaint: Psychiatric Symptoms Stated Complaint: SI Time Seen by Provider: 12/08/24 16:04 History of Present Illness: 49-year-old male presents emergency room with complaints of suicidal ideation x 1 month he also has been having auditory and visual hallucinations. Having paranoid delusions as well. When I went to talk to the patient unfortunately because of a high-volume census in the emergency room he was on a hallway chair. There were no other patients around attempted to speak quietly with him to obtain his history. Patient became confrontational and aggressive and even verbally threatening at times refused to discuss his history with me. Patient threatened to leave. Based on the nurses triage note he would be 96 advised him that he was on a 96-hour hold and he would not be able to leave. Ultimately security had to intervene with the patient as he continually escalated. Nurses completed a affidavit based on triage assessment statements. Related Data Home Medications ?Medication ?Instructions ?Recorded ?Confirmed bupropion HCl 100 mg tablet,12 hr 100 mg PO BID 12/09/24 12/09/24 sustained-release duloxetine 30 mg capsule,delayed 30 mg PO QAM 12/09/24 12/09/24 release sprinkle empagliflozin 25 mg tablet 25 mg PO QAM 12/09/24 12/09/24 finasteride 5 mg tablet 5 mg PO QAM 12/09/24 12/09/24 gabapentin 300 mg capsule 300 mg PO TID 12/09/24 12/09/24 hydroxyzine HCl 25 mg tablet See Rx Instructions .Route 12/09/24 12/09/24 .COMPLEX PRN anger/anxiety lamotrigine 200 mg tablet 100 mg PO QAM 12/09/24 12/09/24 lisinopril 40 mg tablet 20 mg PO QAM 12/09/24 12/09/24 pantoprazole 40 mg tablet,delayed 40 mg PO QAM 12/09/24 12/09/24 release (Protonix) pioglitazone 30 mg tablet 30 mg PO BEDTIME 12/09/24 12/09/24 prazosin 2 mg capsule 2 mg PO QPM 12/09/24 12/09/24 quetiapine 200 mg tablet,extended 200 mg PO DAILY 12/09/24 12/09/24 release 24 hr tamsulosin 0.4 mg capsule 0.4 mg PO QPM 12/09/24 12/09/24 Previous Rx's ?Medication ?Instructions ?Recorded oxycodone 5 mg capsule 5 mg PO Q6H PRN pain #10 caps 11/09/24 clylfw-hmiefinm-ginzzov 1 cap PO TID #90 caps 11/10/24 6,000-19,000-30,000 unit capsule,delayed rel (Creon) Allergies Allergy/AdvReac Type Severity Reaction Status Date / Time No Known Allergies Allergy Verified 11/13/24 14:43 Review of Systems General: Reports: Other (Patient refused to give) [facility] ED PFSH: Social History Smoking and tobacco/nicotine status: never used tobacco/nicotine Additional social history: Patient does not smoke or use drugs he drinks alcohol 6 pack weekly split into nights of the week. He states he was not aware he could not drink at all but will stop drinking completely after we discussed his chronic pancreatitis. He is companied by his Eri. 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 - Psych Medical Decision Making Patient be placed on a 96-hour hold based on his suicidal ideation auditory and visual hallucinations and paranoia. This was redemonstrated with attempts to get brief history. Patient will be given Geodon and Ativan to treat anxiety and hopefully prevent further escalation. Care signed out to Dr. North at change of shift. See final notes for diagnosis and disposition. I received this patient in checkout at shift change. He rapidly became more belligerent, more aggressive, and threatening in the emergency department. Ketamine was added to the above medications prior to administration. He received ketamine, 300 mg IM first, then the other 2 medications. He had to be put in restraints due to violent behavior as he would not sit down and take medications, and became quite aggressive and combative when told he was going to be medicated. He is resting comfortably currently. Heart rate 100, saturation is 93% on room air, respirations 20. He was just let out of his lower extremity restraints Care assumed at change of shift the morning of 12/09/2024. We had secured transfer to [facility] in [place] however when EMS arrived we received a phone call from [facility] they are now unable to take him on. Will have to find other arrangements. Patient is becoming agitated again we have ordered 20 of Zyprexa and 2 of Ativan. Consulted psychiatry Psychiatry came to consult on this patient. It was suggested that we restart the patients daily medications. He had received dosages of them earlier in the day. They were written scheduled. We were able to contact [facility] in [facility], and they have a bed for this patient. He will go out later this morning. He remains medically stable. he has not had to be restrained further. Medical Records I reviewed the patient's medical records. Lab Data I reviewed the patient's lab results. 12/09/24 23:22 12/09/24 23:22 Laboratory Results WBC 7.22 10^3/uL (3.29-11.43) 12/09/24 23:22 RBC 4.55 10^6/uL (3.85-5.65) 12/09/24 23:22 Hgb 13.80 g/dL (11.27-16.99) 12/09/24 23:22 Hct 42.2 % (37-53) 12/09/24 23:22 MCV 92.7 fl (82-101) 12/09/24 23:22 MCH 30.3 pg (27-33) 12/09/24 23:22 MCHC 32.7 g/dL (30-55) 12/09/24 23:22 RDW 12.6 % (12.1-15.1) 12/09/24 23:22 Plt Count 166 10^3/cmm (157-399) 12/09/24 23:22 MPV 9.6 fL (7.4-10.4) 12/09/24 23:22 Neut % (Auto) 60.3 % 12/09/24 23:22 Lymph % (Auto) 29.9 % 12/09/24 23:22 [place] % (Auto) 6.8 % 12/09/24 23:22 Eos % (Auto) 1.8 % 12/09/24 23:22 Baso % (Auto) 1.1 % 12/09/24 23:22 Neut # (Auto) 4.35 10^3/uL (1.8-7.7) 12/09/24 23:22 Lymph # (Auto) 2.2 10^3/uL (0.8-4.8) 12/09/24 23:22 [place] # (Auto) 0.5 10^3/uL (0.2-0.9) 12/09/24 23:22 Eos # (Auto) 0.1 10^3/uL (0.0-0.8) 12/09/24 23:22 Baso # (Auto) 0.1 10^3/uL (0.0-0.1) 12/09/24 23:22 Nucleated RBC % (auto) 0 % 12/09/24 23:22 Nucleated RBCs # 0.0 /100WBC 12/09/24 23:22 Sodium 144 mmol/L (136-145) 12/09/24 23:22 Potassium 4.2 mmol/L (3.5-5.1) 12/09/24 23:22 Chloride 106 mmol/L (98-107) 12/09/24 23:22 Carbon Dioxide 22 mmol/L (22-29) 12/09/24 23:22 Anion Gap 20.2 (5-19) H 12/09/24 23:22 BUN 21 mg/dL (6-20) H 12/09/24 23:22 Creatinine 2.0 mg/dL (0.7-1.2) H 12/09/24 23:22 GFR Calculation 36.0 mL/min (90-130) L 12/09/24 23:22 Glucose 70 mg/dL (65-115) 12/09/24 23:22 Calculated Osmolality 299 mOsm/kg (285-295) H 12/09/24 23:22 Calcium 9.2 mg/dL (8.5-10.5) 12/09/24 23:22 Magnesium 2.3 mg/dL (1.7-2.3) 12/09/24 09:53 Total Bilirubin 0.4 mg/dL (0.15-1.2) 12/09/24 23:22 AST 44 U/L (0-40) H 12/09/24 23:22 ALT 21 U/L (0-41) 12/09/24 23:22 Alkaline Phosphatase 100 U/L (40-130) 12/09/24 23:22 Total Protein 6.9 g/dL (6.6-8.7) 12/09/24 23:22 Albumin 4.1 g/dL (3.5-5.2) 12/09/24 23:22 Globulin 2.8 g/dL (1.3-4.6) 12/09/24 23:22 Lipase 8 U/L (13-60) L 12/09/24 09:53 TSH 1.04 uIU/mL (0.27-4.20) 12/08/24 16:13 Urine Color Yellow (Yellow) 12/08/24 16:30 Urine Appearance Clear (CLEAR) 12/08/24 16:30 Urine pH 6.0 (5-7) 12/08/24 16:30 Ur Specific [place] 1.030 (1.005-1.030) 12/08/24 16:30 Urine Protein Negative (Negative) 12/08/24 16:30 Urine Glucose (UA) 3+ (Normal) H 12/08/24 16:30 Urine Ketones 1+ (Negative) H 12/08/24 16:30 Urine Blood Negative (Negative) 12/08/24 16:30 Urine Nitrate Negative (Negative) 12/08/24 16:30 Urine Bilirubin Negative (Negative) 12/08/24 16:30 Urine Urobilinogen 1.0 mg/dL (Negative) 12/08/24 16:30 Ur Leukocyte Esterase Negative (Negative) 12/08/24 16:30 Urine RBC 0-2 /hpf (0-2) 12/08/24 16:30 Urine WBC 0-5 /hpf (0-5) 12/08/24 16:30 Ur Squamous Epith Cells 0-5 /hpf (0-5) 12/08/24 16:30 Amorphous Sediment Not Reportable 12/08/24 16:30 Urine Bacteria None seen /hpf (NONE) 12/08/24 16:30 Hyaline Casts 0.40 /lpf 12/08/24 16:30 Salicylates < 0.3 mg/dL (3-10) L 12/08/24 16:13 Urine Opiates Screen Negative ng/mL (Negative) 12/08/24 16:30 Acetaminophen < 5.0 ug/mL (10-30) L 12/08/24 16:13 Ur Barbiturates Screen Negative ng/mL (Negative) 12/08/24 16:30 Ur Phencyclidine Scrn Negative ng/mL (Negative) 12/08/24 16:30 Ur Amphetamines Screen Negative ng/mL (Negative) 12/08/24 16:30 U Benzodiazepines Scrn Negative ng/mL (Negative) 12/08/24 16:30 Urine Cocaine Screen Negative ng/mL (Negative) 12/08/24 16:30 U Marijuana (THC) Screen Positive ng/mL (Negative) H 12/08/24 16:30 Ethyl Alcohol < 10 mg/dL (0-10) 12/08/24 16:13 Influenza A (PCR) Negative (Negative) 12/08/24 16:35 Influenza Type B (PCR) Negative (Negative) 12/08/24 16:35 RSV (PCR) Negative (Negative) 12/08/24 16:35 SARS-CoV-2 (PCR) Negative (Negative) 12/08/24 16:35 Discharge Plan Discharge Patient Disposition: Xfer Psychiatric Hosp Clinical Impression: Suicidal ideation, Acute psychosis Condition: Stable Referrals: Maria Eugenia Barney MD [Primary Care Provider, [facility]] Print Language: Prydeinig Coding Level of Care Code ED Sales Operations Assistant for Chg Fwd Documented by User: Krishna North, 12/10/24 14:46 HPI - Psych General: Chief Complaint: Psychiatric Symptoms Stated Complaint: SI Time Seen by Provider: 12/08/24 16:04 Related Data Home Medications ?Medication ?Instructions ?Recorded ?Confirmed bupropion HCl 100 mg tablet,12 hr 100 mg PO BID 12/09/24 12/09/24 sustained-release duloxetine 30 mg capsule,delayed 30 mg PO QAM 12/09/24 12/09/24 release sprinkle empagliflozin 25 mg tablet 25 mg PO QAM 12/09/24 12/09/24 finasteride 5 mg tablet 5 mg PO QAM 12/09/24 12/09/24 gabapentin 300 mg capsule 300 mg PO TID 12/09/24 12/09/24 hydroxyzine HCl 25 mg tablet See Rx Instructions .Route 12/09/24 12/09/24 .COMPLEX PRN anger/anxiety lamotrigine 200 mg tablet 100 mg PO QAM 12/09/24 12/09/24 lisinopril 40 mg tablet 20 mg PO QAM 12/09/24 12/09/24 pantoprazole 40 mg tablet,delayed 40 mg PO QAM 12/09/24 12/09/24 release (Protonix) pioglitazone 30 mg tablet 30 mg PO BEDTIME 12/09/24 12/09/24 prazosin 2 mg capsule 2 mg PO QPM 12/09/24 12/09/24 quetiapine 200 mg tablet,extended 200 mg PO DAILY 12/09/24 12/09/24 release 24 hr tamsulosin 0.4 mg capsule 0.4 mg PO QPM 12/09/24 12/09/24 Previous Rx's ?Medication ?Instructions ?Recorded oxycodone 5 mg capsule 5 mg PO Q6H PRN pain #10 caps 11/09/24 qrmkel-sysgtzqo-oxcpwqh 1 cap PO TID #90 caps 11/10/24 6,000-19,000-30,000 unit capsule,delayed rel (Creon) Allergies Allergy/AdvReac Type Severity Reaction Status Date / Time No Known Allergies Allergy Verified 11/13/24 14:43 PFS ED PFSH: Social History Smoking and tobacco/nicotine status: never used tobacco/nicotine Additional social history: Patient does not smoke or use drugs he drinks alcohol 6 pack weekly split into nights of the week. He states he was not aware he could not drink at all but will stop drinking completely after we discussed his chronic pancreatitis. He is companied by his Eri. 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 Face to Face: Restrn/Seclusion Events leading up to initiation: Verbalizing threat to self or others and Combative/Striking out at staff or others Evaluation of patient's immediate situation: Alert and oriented, No signs of physical distress and Signs of psychological distress Patient reaction since intervention applied: De-escalation/no displays of violent/destructive behavior Recent labs reviewed: Yes Review of medications: Yes Patient's current medical/behavioral condition: No new concerns since last ROS Need for restraint or seclusion is: Continued Attending notified: Attending completed assessment Course Vital Signs: Vital signs: Vital Signs Temperature 97.9 F 12/08/24 15:20 Pulse Rate 87 12/10/24 07:50 Respiratory Rate 16 12/09/24 06:30 Blood Pressure 111/68 12/10/24 00:18 Pulse Oximetry 96 12/10/24 07:50 Oxygen Delivery Me thod Room Air 12/10/24 00:18 [facility] - Psych Medical Decision Making Patient be placed on a 96-hour hold based on his suicidal ideation auditory and visual hallucinations and paranoia. This was redemonstrated with attempts to get brief history. Patient will be given Geodon and Ativan to treat anxiety and hopefully prevent further escalation. Care signed out to Dr. North at change of shift. See final notes for diagnosis and disposition. I received this patient in checkout at shift change. He rapidly became more belligerent, more aggressive, and threatening in the emergency department. Ketamine was added to the above medications prior to administration. He received ketamine, 300 mg IM first, then the other 2 medications. He had to be put in restraints due to violent behavior as he would not sit down and take medications, and became quite aggressive and combative when told he was going to be medicated. He is resting comfortably currently. Heart rate 100, saturation is 93% on room air, respirations 20. He was just let out of his lower extremity restraints Care assumed at change of shift the morning of 12/09/2024. We had secured transfer to [facility] in [place] however when EMS arrived we received a phone call from [facility] they are now unable to take him on. Will have to find other arrangements. Patient is becoming agitated again we have ordered 20 of Zyprexa and 2 of Ativan. Psychiatry came to consult on this patient. It was suggested that we restart the patients daily medications. He had received dosages of them earlier in the day. They were written scheduled. We were able to contact [facility] in [facility], and they have a bed for this patient. He will go out later this morning. He remains medically stable. he has not had to be restrained further. Lab Data 12/09/24 23:22 12/09/24 23:22 Laboratory Results WBC 7.22 10^3/uL (3.29-11.43) 12/09/24 23:22 RBC 4.55 10^6/uL (3.85-5.65) 12/09/24 23:22 Hgb 13.80 g/dL (11.27-16.99) 12/09/24 23:22 Hct 42.2 % (37-53) 12/09/24 23:22 MCV 92.7 fl (82-101) 12/09/24 23:22 MCH 30.3 pg (27-33) 12/09/24 23:22 MCHC 32.7 g/dL (30-55) 12/09/24 23:22 RDW 12.6 % (12.1-15.1) 12/09/24 23:22 Plt Count 166 10^3/cmm (157-399) 12/09/24 23:22 MPV 9.6 fL (7.4-10.4) 12/09/24 23:22 Neut % (Auto) 60.3 % 12/09/24 23:22 Lymph % (Auto) 29.9 % 12/09/24 23:22 [place] % (Auto) 6.8 % 12/09/24 23:22 Eos % (Auto) 1.8 % 12/09/24 23:22 Baso % (Auto) 1.1 % 12/09/24 23:22 Neut # (Auto) 4.35 10^3/uL (1.8-7.7) 12/09/24 23:22 Lymph # (Auto) 2.2 10^3/uL (0.8-4.8) 12/09/24 23:22 [place] # (Auto) 0.5 10^3/uL (0.2-0.9) 12/09/24 23:22 Eos # (Auto) 0.1 10^3/uL (0.0-0.8) 12/09/24 23:22 Baso # (Auto) 0.1 10^3/uL (0.0-0.1) 12/09/24 23:22 Nucleated RBC % (auto) 0 % 12/09/24 23:22 Nucleated RBCs # 0.0 /100WBC 12/09/24 23:22 Sodium 144 mmol/L (136-145) 12/09/24 23:22 Potassium 4.2 mmol/L (3.5-5.1) 12/09/24 23:22 Chloride 106 mmol/L (98-107) 12/09/24 23:22 Carbon Dioxide 22 mmol/L (22-29) 12/09/24 23:22 Anion Gap 20.2 (5-19) H 12/09/24 23:22 BUN 21 mg/dL (6-20) H 12/09/24 23:22 Creatinine 2.0 mg/dL (0.7-1.2) H 12/09/24 23:22 GFR Calculation 36.0 mL/min (90-130) L 12/09/24 23:22 Glucose 70 mg/dL (65-115) 12/09/24 23:22 Calculated Osmolality 299 mOsm/kg (285-295) H 12/09/24 23:22 Calcium 9.2 mg/dL (8.5-10.5) 12/09/24 23:22 Magnesium 2.3 mg/dL (1.7-2.3) 12/09/24 09:53 Total Bilirubin 0.4 mg/dL (0.15-1.2) 12/09/24 23:22 AST 44 U/L (0-40) H 12/09/24 23:22 ALT 21 U/L (0-41) 12/09/24 23:22 Alkaline Phosphatase 100 U/L (40-130) 12/09/24 23:22 Total Protein 6.9 g/dL (6.6-8.7) 12/09/24 23:22 Albumin 4.1 g/dL (3.5-5.2) 12/09/24 23:22 Globulin 2.8 g/dL (1.3-4.6) 12/09/24 23:22 Lipase 8 U/L (13-60) L 12/09/24 09:53 TSH 1.04 uIU/mL (0.27-4.20) 12/08/24 16:13 Urine Color Yellow (Yellow) 12/08/24 16:30 Urine Appearance Clear (CLEAR) 12/08/24 16:30 Urine pH 6.0 (5-7) 12/08/24 16:30 Ur Specific [place] 1.030 (1.005-1.030) 12/08/24 16:30 Urine Protein Negative (Negative) 12/08/24 16:30 Urine Glucose (UA) 3+ (Normal) H 12/08/24 16:30 Urine Ketones 1+ (Negative) H 12/08/24 16:30 Urine Blood Negative (Negative) 12/08/24 16:30 Urine Nitrate Negative (Negative) 12/08/24 16:30 Urine Bilirubin Negative (Negative) 12/08/24 16:30 Urine Urobilinogen 1.0 mg/dL (Negative) 12/08/24 16:30 Ur Leukocyte Esterase Negative (Negative) 12/08/24 16:30 Urine RBC 0-2 /hpf (0-2) 12/08/24 16:30 Urine WBC 0-5 /hpf (0-5) 12/08/24 16:30 Ur Squamous Epith Cells 0-5 /hpf (0-5) 12/08/24 16:30 Amorphous Sediment Not Reportable 12/08/24 16:30 Urine Bacteria None seen /hpf (NONE) 12/08/24 16:30 Hyaline Casts 0.40 /lpf 12/08/24 16:30 Salicylates < 0.3 mg/dL (3-10) L 12/08/24 16:13 Urine Opiates Screen Negative ng/mL (Negative) 12/08/24 16:30 Acetaminophen < 5.0 ug/mL (10-30) L 12/08/24 16:13 Ur Barbiturates Screen Negative ng/mL (Negative) 12/08/24 16:30 Ur Phencyclidine Scrn Negative ng/mL (Negative) 12/08/24 16:30 Ur Amphetamines Screen Negative ng/mL (Negative) 12/08/24 16:30 U Benzodiazepines Scrn Negative ng/mL (Negative) 12/08/24 16:30 Urine Cocaine Screen Negative ng/mL (Negative) 12/08/24 16:30 U Marijuana (THC) Screen Positive ng/mL (Negative) H 12/08/24 16:30 Ethyl Alcohol < 10 mg/dL (0-10) 12/08/24 16:13 Influenza A (PCR) Negative (Negative) 12/08/24 16:35 Influenza Type B (PCR) Negative (Negative) 12/08/24 16:35 RSV (PCR) Negative (Negative) 12/08/24 16:35 SARS-CoV-2 (PCR) Negative (Negative) 12/08/24 16:35 No radiology studies performed this visit Discharge Plan Discharge Patient Disposition: Xfer Psychiatric Hosp Clinical Impression: Suicidal ideation, Acute psychosis Condition: Stable Referrals: Maria Eugenai Barney MD [Primary Care Provider, Family Practice] Print Language: Prydeinig Coding Level of Care Code ED Sales Operations Assistant for Adamaris Cherry
[2024-12-08 17:17] LABS: Respiratory Syncytial Virus Ce NEGATIVE (Negative); SARS-CoV-2 PCR NEGATIVE (Negative)
--- NOTE | 2024-12-08 17:20 | PC.NURSE ---
96 hr rights reviewed with pt @1700 with assistance of [facility] Security officers X2. Rights served after a code 10 had been called in regards to pt's escalated behavior and attempts to leave Emergency Room. HS explained that now that a hold had been placed, we cold not let him leave until a psychiatrist was able to evaluate him and determine patient was safe and eligible for discharge. Pt would not speak to other nursing staff/drs and said he would only speak with HS and 1 assistant director of security, and demanded this HS to make everyone leave. HS educated that staff members would not be readily open to stepping completely away without pt showing that he would deescalate in behavior. Pt was then immediately placed out of HB1 to ER 8. HS was able to speak with pt and verbally deescalate pt for a small period of time. Pt verbalized he understood hold parameters. HS gave pt a copy of his rights. He declined wanting anything at that time. 10 mins after rights were called, pt escalated in behavior once again. PRN meds were ordered in attempts to deescalate pt violent behaviors. Code 10 was called again, and pt was placed into restraint bed with PRN meds given. Dr at bedside during process. Pt now sleeping, and 1:1 PSA within view.
--- NOTE | 2024-12-08 17:23 | PC.NURSE ---
THIS NURSE WAS SITTING AT THE NURSES STATION WHEN THIS NURSE OVERHEARD A LOUD VOICE IN THE HALLWAY. THIS NURSE WAS NOTIFIED BY PSA TO CALL SECURITY PER VERBAL ORDERS BY DR. DELGADO. SECURITY WAS CALLED. THIS NURSE APPROACHED THE HALLWAY AND SAW DR. DELGADO STANDING IN FRONT OF PT HAVING A CONVERSATION. PT HAD HIS VOICE RAISED AND WAS VISIBLY UPSET. PT CONTINUALLY STATED I DON'T HAVE TO TELL YOU ANYTHING IN THIS HALLWAY. I DESERVE PRIVACY AND I DO NOT HAVE TO TELL YOU ANYTHING. DR. DELGADO AND ATTEMPTED TO VERBALLY DE-ESCALATE SITUATION. PT CONTINUES TO BE UPSET AND REFUSING TO TELL DR. DELGADO ANYTHING RELATED TO HIS CARE. PT NO LONGER AT BEDSIDE AT THIS TIME. PT SITTING IN HALLWAY CHAIR WITH PSA PRESENT.
--- NOTE | 2024-12-08 17:40 | PC.NURSE ---
PT APPROACHED THE NURSES STATION REQUESTING TO HAVE HIS PHONE AND BELONGINGS. THIS NURSE EDUCATED PT THAT SHE WAS NOT ABLE TO GIVE HIM HIS BELONGINGS AT THIS TIME. PT STATED HE WAS NOT GOING TO LEAVE THE NURSES STATION UNTIL HE RECIEVED HIS PHONE. PT BECAME VERBALLY ESCALATED AND STILL REFUSED TO GO BACK TO HIS CHAIR AFTER MULTIPLE ATTEMPTS TO DE-ESCALATE PT. CODE [address] DELGADO PRESENT. PT VERBALIZED THAT HE DID NOT WANT DR. DELGADO PRESENT. DR. DELGADO CONTINUES TO STAND NEXT TO PT IN ATTEMPT TO DE-ESCALATE PT. PT CONTINUED TO ESCALATE WITH DR. DELGADO PRESENT. VINCENZO ROSARIOBOILER FIREMAN, SECURITY ANDREI, DANTE, RN, LALO, JIM PRESENT TO ASSIST WITH DE-ESCALATION AND CODE 10. AFTER MULTIPLE ATTEMPTS TO VERBALLY DE-ESCALATE PT, PT AGREEABLE TO GOING BACK TO HIS HALLWAY CHAIR. PT REQUESTING TO LEAVE. PT WAS EDUCATED ON BEING PLACED ON A 96 HOUR HOLD. A PSYCH ROOM BECAME AVAILABLE AND PT WAS MOVED TO ED 8. PSA OUTSIDE ROOM AT THIS TIME. PT CONTINUALLY PACING IN ROOM AT THIS TIME.
--- NOTE | 2024-12-08 17:40 | PC.NURSE ---
REPORT WAS GIVEN TO JIM GLEZ. JMI GLEZ ASSUMED CARE OF THIS PT FROM THIS NURSE.
[2024-12-08] MEDS: LORazepam 1 MG/0.5 ML injection 2 MG IM (18:16)
[2024-12-08] MEDS: water for injection-sterile 10 ML 999 ML (18:20)
[2024-12-08] MEDS: ketamine 100 mg/mL Inj 5 mL 300 MG IM (18:21)
--- NOTE | 2024-12-08 18:40 | PC.NURSE ---
pt was pacing around room and JIM Escobar who was charge nurse was attempting to calm pt down and he was yelling. pt states that he was not yelling and was stating he was going to close the curtain. this Rn told pt that we will remove curtain from the room if he does not keep it open. pt then began to state that he was not taking medication. Dr. North and Dr. Schroeder both attempted to deescalate pt but pt refused. Security attempted to inform pt that he was on a 96 hour hold and didnt have a choice as he was given many chances to calm down and would not. Staff gave him medications to help calm him down and placed him in the restraint bed. all limbs are well pink and warm with good capillary refill.
--- NOTE | 2024-12-08 19:13 | PC.NURSE ---
right lower limb released from restraints.
--- NOTE | 2024-12-08 19:50 | ECG_ITS ---
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 Measurements Intervals [place] Rate: 100 P: 72 DE: 182 QRS: 80 QRSD: 86 T: 30 QT: 309 QTc: 399 Interpretive Statements SINUS TACHYCARDIA ST DEVIATION AND MODERATE T-WAVE ABNORMALITY, CONSIDER LATERAL ISCHEMIA [-0.1+ mV T-WAVE IN I/aVL/V5/V6] Compared to ECG 11/09/2024 20:04:09 T-wave abnormality now present Possible ischemia now present Sinus bradycardia no longer present Myocardial infarct finding no longer present Electronically Signed On 12-09-2024 08:41:40 CDT by Kj Martin M.D. [email or web address]
--- NOTE | 2024-12-08 20:54 | PC.NURSE ---
pt is out of restraints, pt is calm and cooperative at this time.
--- NOTE | 2024-12-08 20:58 | PC.NURSE ---
This nurse took over care on this patient at 1900.
[2024-12-08 22:33] LABS: Thyroid Stimulating Hormone 1.04 uIU/mL (0.27-4.20)
[2024-12-09] VITALS (19 sets, daily range): BP systolic 97–151; BP diastolic 58–111; PULSE 70–99; RESP 14–19; O2SAT 92–98
--- NOTE | 2024-12-09 06:51 | PC.NURSE ---
THIS NURSE ASSUMED CARE @ 4018.
[2024-12-09] MEDS: LORazepam 1 MG/0.5 ML injection 2 MG IM ×2 (09:06→18:48)
[2024-12-09] MEDS: water for injection-sterile 10 ML 2.1 ML (09:07)
--- NOTE | 2024-12-09 09:34 | PC.NURSE ---
AHMET LAMBERT FROM [place] CALLED IN REGARDS TO PATIENT [facility] ATT[facility]CCURRENCE ON THEIR UNIT AND THEY WERE NO LONGER ABLE TO TAKE THE PATIENT.
[2024-12-09 10:07] LABS: Hematocrit 45.0 % (37-53); Hemoglobin 14.70 g/dL (11.27-16.99); Mean Corpuscular HGB Conc 32.7 g/dL (30-55); Mean Corpuscular Hemoglobin 30.6 pg (27-33); Mean Corpuscular Volume 93.6 fl (82-101); Nucleated Red Blood Cells % 0 %; Platelet Count 192 10^3/cmm (157-399); Red Blood Count 4.81 10^6/uL (3.85-5.65); White Blood Count 9.20 10^3/uL (3.29-11.43)
[2024-12-09 10:18] LABS: Anion Gap 21.1 (5-19); Blood Urea Nitrogen 24 mg/dL (6-20); Calcium 9.4 mg/dL (8.5-10.5); Carbon Dioxide 20 mmol/L (22-29); Chloride 104 mmol/L (98-107); Creatinine Clr Calc Pharmacy 48.3865; Glucose 102 mg/dL (65-115); Lipase 8 U/L (13-60); Magnesium 2.3 mg/dL (1.7-2.3); Osmolality Calculated 296 mOsm/kg (285-295); Potassium 4.1 mmol/L (3.5-5.1); Sodium 141 mmol/L (136-145)
--- NOTE | 2024-12-09 11:02 | PC.PHAR ---
Last C2-oxycodone 5 mg-written by ER Doc in [place]. It does not show up on PDMP website according to [facility], where Noco 5-325 was picked up on 08/30/24 #16.
--- NOTE | 2024-12-09 15:45 | PC.NURSE ---
patient refused medications after stating he would only take his daily medications. provider notified.
[2024-12-09] MEDS: water for injection-sterile 10 ML ×2 (18:55→22:05)
[2024-12-09] MEDS: ketamine 100 mg/mL Inj 5 mL 300 MG IM (19:32)
[2024-12-09 23:28] LABS: Hematocrit 42.2 % (37-53); Hemoglobin 13.80 g/dL (11.27-16.99); Mean Corpuscular HGB Conc 32.7 g/dL (30-55); Mean Corpuscular Hemoglobin 30.3 pg (27-33); Mean Corpuscular Volume 92.7 fl (82-101); Nucleated Red Blood Cells % 0 %; Platelet Count 166 10^3/cmm (157-399); Red Blood Count 4.55 10^6/uL (3.85-5.65); White Blood Count 7.22 10^3/uL (3.29-11.43)
[2024-12-09 23:49] LABS: Alanine Aminotransferase 21 U/L (0-41); Albumin Level 4.1 g/dL (3.5-5.2); Alkaline Phosphatase 100 U/L (40-130); Anion Gap 20.2 (5-19); Aspartate Amino Transferase 44 U/L (0-40); Blood Urea Nitrogen 21 mg/dL (6-20); Calcium 9.2 mg/dL (8.5-10.5); Carbon Dioxide 22 mmol/L (22-29); Chloride 106 mmol/L (98-107); Creatinine Clr Calc Pharmacy 53.2252; Globulin 2.8 g/dL (1.3-4.6); Glucose 70 mg/dL (65-115); Osmolality Calculated 299 mOsm/kg (285-295); Potassium 4.2 mmol/L (3.5-5.1); Sodium 144 mmol/L (136-145); Total Protein 6.9 g/dL (6.6-8.7)
[2024-12-10 00:18] VITALS: BP 111/68; PULSE 88; O2SAT 96
[2024-12-10 07:50] VITALS: PULSE 87; O2SAT 96
== END 2024-12-10 07:51 ==
PROVIDERS: Emergency Medicine; Emergency Provider Family Medicine; PCP Family Medicine
DX: R45.851 Suicidal ideations (principal); F23 Brief psychotic disorder; Z11.52 Encounter for screening for COVID-19
CPT/HCPCS: 36415; 80048; 80053; 80306; 80307; 81001; 83690; 83735; 84443; 85025; 87637; 93005; 96372; 99285; J2060; J3486; J3490; J7030; J9999

== ENCOUNTER 2025-01-05 12:58 | Outpatient (CLI) | payer OTHER, SELFPAY ==
[2025-01-05 13:24] LABS: Hematocrit 40.3 % (37-53); Hemoglobin 13.40 g/dL (11.27-16.99); Mean Corpuscular HGB Conc 33.3 g/dL (30-55); Mean Corpuscular Hemoglobin 31.2 pg (27-33); Mean Corpuscular Volume 93.9 fl (82-101); Nucleated Red Blood Cells % 0 %; Platelet Count 154 10^3/cmm (157-399); Red Blood Count 4.29 10^6/uL (3.85-5.65); White Blood Count 6.20 10^3/uL (3.29-11.43)
[2025-01-05 14:03] LABS: Albumin Level 4.3 g/dL (3.5-5.2); Anion Gap 15.0 (5-19); Blood Urea Nitrogen 21 mg/dL (6-20); Calcium 9.2 mg/dL (8.5-10.5); Carbon Dioxide 24 mmol/L (22-29); Chloride 105 mmol/L (98-107); Glucose 198 mg/dL (65-115); Potassium 5.0 mmol/L (3.5-5.1); Sodium 139 mmol/L (136-145)
== END 2025-01-05 12:59 | disposition home or self-care (01) ==
PROVIDERS: PCP Family Medicine; Visit Provider Registered Nurse
DX: E55.9 Vitamin D deficiency, unspecified (principal); Q61.3 Polycystic kidney, unspecified
CPT/HCPCS: 36415; 80069; 82306; 82310; 83970; 85025

== ENCOUNTER 2025-04-06 09:51 | Outpatient (CLI) | payer OTHER, SELFPAY ==
[2025-04-06 10:45] LABS: Hematocrit 43.7 % (37-53); Hemoglobin 14.70 g/dL (11.27-16.99); Mean Corpuscular HGB Conc 33.6 g/dL (30-55); Mean Corpuscular Hemoglobin 30.2 pg (27-33); Mean Corpuscular Volume 89.9 fl (82-101); Nucleated Red Blood Cells % 0 %; Platelet Count 175 10^3/cmm (157-399); Red Blood Count 4.86 10^6/uL (3.85-5.65); White Blood Count 9.70 10^3/uL (3.29-11.43)
[2025-04-06 11:02] LABS: Creatinine Urine, Random 81 mg/dL (39-259); Microalbum Creatinine Ratio Ur 12 mg/dL (0-20)
[2025-04-06 11:09] LABS: Calcium 9.3 mg/dL (8.5-10.5)
[2025-04-06 11:10] LABS: Albumin Level 4.5 g/dL (3.5-5.2); Anion Gap 18.9 (5-19); Blood Urea Nitrogen 26 mg/dL (6-20); Calcium 9.3 mg/dL (8.5-10.5); Carbon Dioxide 23 mmol/L (22-29); Chloride 103 mmol/L (98-107); Glucose 183 mg/dL (65-115); Potassium 4.9 mmol/L (3.5-5.1); Sodium 140 mmol/L (136-145)
== END 2025-04-06 09:52 | disposition home or self-care (01) ==
LOC: LAB 09:53
PROVIDERS: PCP Family Medicine; Visit Provider Registered Nurse
DX: N18.32 Chronic kidney disease, stage 3b (principal)
CPT/HCPCS: 36415; 80069; 82044; 82306; 82310; 83970; 85025